=== PATIENT | female | born 1945 | race Caucasian/White ===

== ENCOUNTER 2017-08-07 12:50 | Inpatient (IN) | payer MEDICARE ==
[~2017-08-07] VITALS: Ht 154.9 cm; Wt 63.6 kg
[2017-08-07] VITALS (11 sets, daily range): BP systolic 99–140; BP diastolic 45–63
[2017-08-07 13:25] LABS: BASOPHILS # (AUTO) 0.1 X10'3 (0-0.2); BASOPHILS % (AUTO) 0.8 % (0-1); EOSINOPHILS # (AUTO) 0.3 X10'3 (0-0.9); HEMATOCRIT 41.2 % (35.0-45.0); HEMOGLOBIN 14.4 g/dl (12.0-16.0); LYMPHOCYTES # (AUTO) 2.8 X10'3 (1.1-4.8); LYMPHOCYTES % (AUTO) 21.8 % (21-51); MEAN CORPUSCULAR HEMOGLOBIN 33.4 PG (27.0-31.0); MEAN CORPUSCULAR VOLUME 95.4 FL (78-98); MEAN PLATELET VOLUME 7.9 FL (7.4-10.4); MONOCYTES # (AUTO) 0.8 X10'3 (0-0.9); MONOCYTES % (AUTO) 5.9 % (2-12); NEUTROPHILS % (AUTO) 69.5 % (42-75); PLATELET COUNT 242 X10'3 (140-440); RED BLOOD COUNT 4.32 X10'6 (4.20-5.60); RED CELL DISTRIBUTION WIDTH 12.7 % (11.5-14.5)
[2017-08-07] MEDS ORDERED: morphine 4 MG/ML inj SYRINge IV ONE ×4 (13:25→16:50)
[2017-08-07] MEDS ORDERED: ondansetron 4 MG/5 ML oral solution 5ml CUP PO ONE (13:25)
[2017-08-07] MEDS ORDERED: aspirin 81mg tab.chew PO ONE (13:25)
[2017-08-07 13:34] LABS: PARTIAL THROMBOPLASTIN TIME 25 SECONDS (22-32); PROTHROMBIN TIME 10.3 SECONDS (9.0-12.0)
[2017-08-07 13:39] LABS: ALANINE AMINOTRANSFERASE 20 U/L (12-78); ALBUMIN 3.8 G/DL (3.4-5.0); ALKALINE PHOSPHATASE 76 IU/L (46-116); ANION GAP 9 (8-16); ASPARTATE AMINO TRANSFERASE 16 U/L (10-37); BILIRUBIN,TOTAL 0.4 MG/DL (0.1-1.0); BLOOD UREA NITROGEN 18 MG/DL (7-18); BUN/CREATININE RATIO 26.5 (6.6-38.0); CALCIUM 9.2 MG/DL (8.5-10.1); CHLORIDE 106 MMOL/L (99-107); CREATININE 0.68 MG/DL (0.40-0.90); GLUCOSE 96 MG/DL (70-104); SODIUM 144 MMOL/L (135-145); TOTAL PROTEIN 7.5 G/DL (6.4-8.2); eGFR 85 ML/MIN
[2017-08-07 14:43] LABS: LACTATE DEHYDROGENASE 163 U/L (81-234); LIPASE 58 U/L (73-393)
[2017-08-07 16:12] LABS: CLARITY,URINE SLIGHTLY CLOUDY (Clear); COLOR,URINE YELLOW (Yellow); GLUCOSE, URINE NEGATIVE (Neg); KETONES,URINE TRACE mg/dl (Neg); LEUKOCYTE ESTERASE ,URINE MODERATE (Neg); NITRITES, URINE NEGATIVE (Neg); OCCULT BLOOD,URINE NEGATIVE (Neg); PROTEIN,URINE NEGATIVE (Neg)
[2017-08-07 16:17] LABS: UA COLLECTION TYPE CLN CATCH MIDSTREAM
[2017-08-07 16:27] LABS: BACTERIA,URINE 1+ /HPF (Neg); MUCUS STRANDS FEW /LPF (Neg); RBC,URINE NONE SEEN /HPF (0-2); SQUAMOUS EPITHELIAL CELL,UR MODERATE /LPF (FEW); TRANSITIONAL EPI CELLS,URINE FEW /HPF; WBC,URINE 0-4 /HPF (0-4)
[2017-08-07] MEDS ORDERED: LISI-600 PO (17:09)
[2017-08-07] MEDS ORDERED: ATOR10TA70 PO (17:09)
[2017-08-07] MEDS ORDERED: ASPI-611 PO (17:09)
[2017-08-07] MEDS ORDERED: levoFLOXACIN-Levaquin 750MG/D5 150 ML IV STA (17:23)
[2017-08-07] MEDS ORDERED: metroNIDAZOLE-Flagyl 500mg/NS 100 ML IV STA (17:23)
[2017-08-07] MEDS ORDERED: morphine 4 MG/ML inj SYRINge IV PRN ×4 (17:45→18:10)
[2017-08-07] MEDS ORDERED: magnesium Cl slow-release 64mg tablet PO PRN (17:45)
[2017-08-07] MEDS ORDERED: HYDROmorphone inj. 0.5 MG/0.5 ML DISP.SYRIN IV PRN ×2 (17:45)
[2017-08-07] MEDS ORDERED: metoclopramide 5 mg/ml inj IV PRN (17:45)
[2017-08-07] MEDS ORDERED: diphenhydrAMINE 50 mg/ml inj IV PRN (17:45)
[2017-08-07] MEDS ORDERED: magnesium 4gm in 100ml NS 100 ML IV PRN (17:45)
[2017-08-07] MEDS ORDERED: magnesium hydroxide 30ml (MOM) UD suspension PO PRN (17:45)
[2017-08-07] MEDS ORDERED: acetaminophen 650mg rectal suppository RC PRN (17:45)
[2017-08-07] MEDS ORDERED: potassium Cl 20 mEq SR tablet PO PRN (17:45)
[2017-08-07] MEDS ORDERED: acetaminophen 325mg tablet PO PRN ×2 (17:45)
[2017-08-07] MEDS ORDERED: potassium Cl 40MEQ/NS 500ml 500 ML IV PRN ×2 (17:45)
[2017-08-07] MEDS ORDERED: magnesium 2GM in 50ml NS 50 ML IV PRN (17:45)
[2017-08-07] MEDS ORDERED: ondansetron/PF 4mg/2ml inj IV PRN ×2 (17:45→18:10)
[2017-08-07] MEDS ORDERED: mag hydrox/Alum hydrox/simeth 30ml oral suspension PO PRN (17:45)
[2017-08-07] MEDS ORDERED: ringers solution, lacted 1,000 ML IV SCH (18:07)
[2017-08-07] MEDS ORDERED: meperidine/PF 50mg/ml syringe IV PRN ×3 (18:10)
[2017-08-07] MEDS ORDERED: proCHLORperazine 10 MG/2 ml inj IV PRN (18:10)
[2017-08-07] MEDS ORDERED: LIDOcaine 1% 30ml preserv. free vial ONE (18:14)
[2017-08-07] MEDS ORDERED: BUPIVAcaine/PF 2.5 mg/ml (0.25%) 30ml vial ONE (18:14)
[2017-08-07] MEDS: pantoprazole 40 MG vial IV SCH (18:26)
[2017-08-07] MEDS: normal saline 1000ml 1,000 ML IV SCH ×2 (18:26→22:57)
[2017-08-07] MEDS ORDERED: fentaNYL/PF 50MCG/1 ML 2ML syringe ONE (18:27)
[2017-08-07] MEDS ORDERED: midazolam 2 mg/2 ml injection ONE (18:27)
[2017-08-07] MEDS ORDERED: LIDOcaine 2% (20mg/ml) 5ml vial ONE (18:28)
[2017-08-07] MEDS: K and/or MAG REPLACEMENT MC SCH (18:32)
[2017-08-07] MEDS ORDERED: ketorolac trometh. 30mg/ml inj. ONE (18:40)
[2017-08-07] MEDS ORDERED: sevoflurane 250ml liquid IH ONE (18:40)
[2017-08-07] MEDS ORDERED: dexamethasone sod phosphate 4mg/ml inj. ONE (19:10)
[2017-08-07] MEDS ORDERED: glycopyrrolate 0.2mg/ml inj ONE (20:00)
[2017-08-07] MEDS ORDERED: neostigmine methylsulfate 1 MG/ML 10ml vial ONE (20:00)
[2017-08-07] MEDS ORDERED: temazepam 15mg capsule PO PRN (21:00)
[2017-08-07] MEDS: metroNIDAZOLE-Flagyl 500mg/NS 100 ML IV SCH (23:32)
[2017-08-08] VITALS: BP_SYST 120; BP_SYST 99; BP_DIAS 47; BP_DIAS 76
[2017-08-08 01:00] VITALS: BP 115/63
[2017-08-08] MEDS: HYDROcodone/acetaminophen 5mg/325mg tablet PO PRN (04:46)
[2017-08-08 04:54] VITALS: BP 122/48
[2017-08-08 05:08] LABS: BASOPHILS % (AUTO) 0.1 % (0-1); EOSINOPHILS # (AUTO) 0.1 X10'3 (0-0.9); EOSINOPHILS % (AUTO) 1.4 % (0-6); HEMATOCRIT 36.9 % (35.0-45.0); HEMOGLOBIN 12.8 g/dl (12.0-16.0); LYMPHOCYTES # (AUTO) 0.8 X10'3 (1.1-4.8); MEAN CORPUSCULAR HGB CONC 34.7 % (33.0-36.5); MEAN CORPUSCULAR VOLUME 94.9 FL (78-98); MEAN PLATELET VOLUME 8.5 FL (7.4-10.4); MONOCYTES # (AUTO) 0.3 X10'3 (0-0.9); MONOCYTES % (AUTO) 3.3 % (2-12); NEUTROPHILS # (AUTO) 7.4 X10'3 (1.8-7.7); NEUTROPHILS % (AUTO) 86.2 % (42-75); PLATELET COUNT 186 X10'3 (140-440); RED BLOOD COUNT 3.89 X10'6 (4.20-5.60); RED CELL DISTRIBUTION WIDTH 12.9 % (11.5-14.5); WHITE BLOOD COUNT 8.6 X10'3 (4.5-11.0)
[2017-08-08 05:25] LABS: ALANINE AMINOTRANSFERASE 23 U/L (12-78); ALBUMIN 2.8 G/DL (3.4-5.0); ALBUMIN/GLOBULIN RATIO 0.8 (1.1-1.5); ALKALINE PHOSPHATASE 63 IU/L (46-116); ANION GAP 9 (8-16); ASPARTATE AMINO TRANSFERASE 23 U/L (10-37); BILIRUBIN,TOTAL 0.4 MG/DL (0.1-1.0); BLOOD UREA NITROGEN 14 MG/DL (7-18); BUN/CREATININE RATIO 20.3 (6.6-38.0); CALCIUM 8.2 MG/DL (8.5-10.1); CHLORIDE 109 MMOL/L (99-107); CREATININE 0.69 MG/DL (0.40-0.90); GLUCOSE 149 MG/DL (70-104); MAGNESIUM 1.8 MG/DL (1.5-2.4); PHOSPHORUS 3.5 MG/DL (2.3-4.5); POTASSIUM 4.4 MMOL/L (3.5-5.1); SODIUM 143 MMOL/L (135-145); TOTAL CARBON DIOXIDE 24.9 MMOL/L (24-32); TOTAL PROTEIN 6.2 G/DL (6.4-8.2); eGFR 83 ML/MIN
[2017-08-08 07:30] VITALS: BP 117/49
[2017-08-08] MEDS: metroNIDAZOLE-Flagyl 500mg/NS 100 ML IV SCH ×3 (07:52→23:55)
[2017-08-08] MEDS: K and/or MAG REPLACEMENT MC SCH (08:00)
[2017-08-08] MEDS ORDERED: non-formulary drug (Aspirin (Aspir 81) 1 TAB) PO SCH (08:00)
[2017-08-08] MEDS: pantoprazole 40 MG vial IV SCH (08:41)
[2017-08-08] MEDS: lisinopril 20mg tablet PO SCH (08:41)
[2017-08-08] MEDS: atorvastatin 10mg tablet PO SCH (08:41)
[2017-08-08] MEDS: aspirin 81mg tablet.DR PO SCH (08:41)
[2017-08-08] MEDS: enoxaparin 40mg/0.4ml syringe SUBCUT SCH (08:42)
[2017-08-08] MEDS: levoFLOXACIN-Levaquin 750MG/D5 150 ML IV SCH (09:15)
[2017-08-08] MEDS: HYDROcodone/acetaminophen 10/325mg tab PO PRN ×2 (09:34→21:06)
[2017-08-08 11:00] VITALS: BP 124/65
[2017-08-08] MEDS: normal saline 1000ml 1,000 ML IV SCH ×2 (12:03→23:56)
[2017-08-08 20:00] VITALS: BP 150/60
[2017-08-09] VITALS: BP 117/64
[2017-08-09 05:10] LABS: BASOPHILS % (AUTO) 0.3 % (0-1); EOSINOPHILS # (AUTO) 0.1 X10'3 (0-0.9); EOSINOPHILS % (AUTO) 1.7 % (0-6); HEMATOCRIT 32.6 % (35.0-45.0); HEMOGLOBIN 11.3 g/dl (12.0-16.0); LYMPHOCYTES # (AUTO) 2.1 X10'3 (1.1-4.8); LYMPHOCYTES % (AUTO) 27.9 % (21-51); MEAN CORPUSCULAR HEMOGLOBIN 33.1 PG (27.0-31.0); MEAN CORPUSCULAR HGB CONC 34.6 % (33.0-36.5); MEAN CORPUSCULAR VOLUME 95.7 FL (78-98); MEAN PLATELET VOLUME 8.5 FL (7.4-10.4); MONOCYTES # (AUTO) 0.7 X10'3 (0-0.9); MONOCYTES % (AUTO) 8.9 % (2-12); NEUTROPHILS # (AUTO) 4.5 X10'3 (1.8-7.7); NEUTROPHILS % (AUTO) 61.2 % (42-75); PLATELET COUNT 162 X10'3 (140-440); RED CELL DISTRIBUTION WIDTH 12.8 % (11.5-14.5); WHITE BLOOD COUNT 7.4 X10'3 (4.5-11.0)
[2017-08-09 05:47] LABS: ANION GAP 9 (8-16); BLOOD UREA NITROGEN 15 MG/DL (7-18); BUN/CREATININE RATIO 21.4 (6.6-38.0); CALCIUM 8.2 MG/DL (8.5-10.1); CHLORIDE 111 MMOL/L (99-107); GLUCOSE 78 MG/DL (70-104); POTASSIUM 3.3 MMOL/L (3.5-5.1); SODIUM 144 MMOL/L (135-145); TOTAL CARBON DIOXIDE 24.5 MMOL/L (24-32); eGFR 82 ML/MIN
[2017-08-09 05:48] LABS: ALANINE AMINOTRANSFERASE 25 U/L (12-78); ALBUMIN 2.6 G/DL (3.4-5.0); ALBUMIN/GLOBULIN RATIO 0.9 (1.1-1.5); ALKALINE PHOSPHATASE 50 IU/L (46-116); ASPARTATE AMINO TRANSFERASE 21 U/L (10-37); BILIRUBIN,TOTAL 0.3 MG/DL (0.1-1.0); MAGNESIUM 1.8 MG/DL (1.5-2.4); PHOSPHORUS 2.8 MG/DL (2.3-4.5); TOTAL PROTEIN 5.5 G/DL (6.4-8.2)
[2017-08-09 07:30] VITALS: BP 124/53
[2017-08-09] MEDS: pantoprazole 40 MG vial IV SCH (07:34)
[2017-08-09] MEDS: enoxaparin 40mg/0.4ml syringe SUBCUT SCH (07:36)
[2017-08-09] MEDS: atorvastatin 10mg tablet PO SCH (07:36)
[2017-08-09] MEDS: levoFLOXACIN-Levaquin 750MG/D5 150 ML IV SCH (07:36)
[2017-08-09] MEDS: aspirin 81mg tablet.DR PO SCH (07:36)
[2017-08-09] MEDS: lisinopril 20mg tablet PO SCH (07:36)
[2017-08-09] MEDS: K and/or MAG REPLACEMENT MC SCH (08:00)
[2017-08-09] MEDS: normal saline 1000ml 1,000 ML IV SCH (09:44)
[2017-08-09] MEDS: potassium Cl 20 mEq SR tablet PO PRN ×3 (09:52→18:00)
[2017-08-09] MEDS: HYDROcodone/acetaminophen 5mg/325mg tablet PO PRN ×2 (09:57→15:55)
[2017-08-09] MEDS: metroNIDAZOLE-Flagyl 500mg/NS 100 ML IV SCH ×2 (10:13→15:54)
[2017-08-09 11:00] VITALS: BP 133/68
== END 2017-08-09 18:11 | disposition home or self-care (01) | DRG 418 ==
LOC: ER 12:51 → ED HOLD 17:44 → SUR 3N 20:55
PROVIDERS: ADMIT Family Medicine; ATTEND Internal Medicine
PROC: 0FT44ZZ Resection of Gallbladder, Percutaneous Endoscopic Approach (ICD-10-PCS; principal; 2017-08-07 18:40)
DX: K80.00 Calculus of gallbladder with acute cholecystitis without obstruction (principal); R65.10 Systemic inflammatory response syndrome (SIRS) of non-infectious origin without acute organ dysfunction; E11.9 Type 2 diabetes mellitus without complications; N28.1 Cyst of kidney, acquired; E78.00 Pure hypercholesterolemia, unspecified; E78.5 Hyperlipidemia, unspecified; I10 Essential (primary) hypertension; I71.4 Abdominal aortic aneurysm, without rupture; F17.200 Nicotine dependence, unspecified, uncomplicated; Z98.51 Tubal ligation status; Z88.0 Allergy status to penicillin; Z88.5 Allergy status to narcotic agent; Z79.899 Other long term (current) drug therapy; Z79.01 Long term (current) use of anticoagulants; Z79.82 Long term (current) use of aspirin; Z80.1 Family history of malignant neoplasm of trachea, bronchus and lung; Z71.6 Tobacco abuse counseling
CPT/HCPCS: 36415; 71045; 74176; 76700; 80053; 81001; 83605; 83615; 83690; 83735; 83880; 84100; 84484; 85025; 85610; 85730; 87040; 87070; 87088; 93005; 96374; 96375; 99285; A6251; A6449; A7000; C9113; J1100; J1650; J1885; J1956; J2001; J2250; J2270; J2405; J2710; J3010; J3490; J7030; J7120

== ENCOUNTER 2018-08-30 19:36 | Inpatient (IN) | payer MEDICARE ==
[~2018-08-30] VITALS: Ht 157.5 cm; Wt 60.0 kg
[~2018-08-30 19:36] MED LIST: ASPI-611 PO; ATOR10TA70 PO; LISI-600 PO
[2018-08-30] MEDS ORDERED: fentaNYL/PF 50MCG/1 ML 2ML syringe IV ONE ×2 (20:20→23:05)
[2018-08-30] MEDS ORDERED: morphine 4 MG/ML inj SYRINge IV ONE (22:10)
[2018-08-30 22:39] LABS: BASOPHILS % (AUTO) 0.3 % (0-1); EOSINOPHILS # (AUTO) 0.2 X10'3 (0-0.9); EOSINOPHILS % (AUTO) 1.5 % (0-6); HEMATOCRIT 42.1 % (35.0-45.0); LYMPHOCYTES # (AUTO) 1.8 X10'3 (1.1-4.8); LYMPHOCYTES % (AUTO) 14.5 % (21-51); MEAN CORPUSCULAR HEMOGLOBIN 32.8 PG (27.0-31.0); MEAN CORPUSCULAR HGB CONC 33.3 g/dL (33.0-36.5); MEAN CORPUSCULAR VOLUME 98.5 FL (78-98); MONOCYTES # (AUTO) 0.7 X10'3 (0-0.9); MONOCYTES % (AUTO) 5.9 % (2-12); NEUTROPHILS # (AUTO) 9.5 X10'3 (1.8-7.7); NEUTROPHILS % (AUTO) 77.8 % (42-75); PLATELET COUNT 219 X10'3 (140-440); RED BLOOD COUNT 4.28 X10'6 (4.20-5.60); RED CELL DISTRIBUTION WIDTH 12.7 % (11.5-14.5); WHITE BLOOD COUNT 12.2 X10'3 (4.5-11.0)
[2018-08-30 22:41] LABS: ALANINE AMINOTRANSFERASE 24 U/L (12-78); ALBUMIN 3.4 G/DL (3.4-5.0); ALKALINE PHOSPHATASE 81 IU/L (46-116); ANION GAP 8 (8-16); BILIRUBIN,TOTAL 0.2 MG/DL (0.1-1.0); BLOOD UREA NITROGEN 22 MG/DL (7-18); BUN/CREATININE RATIO 27.5 (6.6-38.0); CHLORIDE 108 MMOL/L (99-107); GLUCOSE 125 MG/DL (70-104); SODIUM 143 MMOL/L (135-145); TOTAL CARBON DIOXIDE 26.6 MMOL/L (24-32); TOTAL PROTEIN 6.8 G/DL (6.4-8.2); eGFR 70 ML/MIN
[2018-08-30 22:42] LABS: ASPARTATE AMINO TRANSFERASE 14 U/L (10-37); PARTIAL THROMBOPLASTIN TIME 25 SECONDS (22-32); POTASSIUM 4.3 MMOL/L (3.5-5.1)
[2018-08-30 23:26] LABS: CLARITY,URINE CLEAR (Clear); COLOR,URINE YELLOW (Yellow); GLUCOSE, URINE NEGATIVE (Neg); KETONES,URINE NEGATIVE (Neg); LEUKOCYTE ESTERASE ,URINE NEGATIVE (Neg); NITRITES, URINE NEGATIVE (Neg); OCCULT BLOOD,URINE MODERATE (Neg); PH,URINE 5.5 (4.8-8.0); PROTEIN,URINE NEGATIVE (Neg); UA COLLECTION TYPE FOLEY CATH
[2018-08-30 23:31] LABS: BACTERIA,URINE FEW /HPF (Neg); SQUAMOUS EPITHELIAL CELL,UR FEW /LPF (FEW); WBC,URINE NONE SEEN /HPF (0-4)
[2018-08-31] VITALS (18 sets, daily range): BP systolic 96–136; BP diastolic 34–83
[2018-08-31] MEDS ORDERED: acetaminophen 325mg tablet PO PRN (00:05)
[2018-08-31] MEDS ORDERED: HYDROcodone/acetaminophen 5mg/325mg tablet PO PRN (00:05)
[2018-08-31] MEDS ORDERED: mag hydrox/Alum hydrox/simeth 30ml oral suspension PO PRN (00:05)
[2018-08-31] MEDS ORDERED: morphine 2 MG/ML inj. syringe IV PRN ×2 (00:05)
[2018-08-31] MEDS ORDERED: magnesium hydroxide 30ml (MOM) UD suspension PO PRN (00:05)
[2018-08-31] MEDS ORDERED: CADD PCA waste documentation MC PRN (00:30)
[2018-08-31] MEDS ORDERED: naloxone 0.4 mg/ml inj IV PRN (00:30)
[2018-08-31] MEDS ORDERED: HYDROmorphone inj. 0.5 MG/0.5 ML DISP.SYRIN IV ONE (00:35)
[2018-08-31] MEDS: ondansetron/PF 4mg/2ml inj IV PRN (01:41)
[2018-08-31] MEDS: normal saline 1000ml 1,000 ML IV SCH ×3 (01:56→23:38)
--- NOTE | 2018-08-31 02:00 | NUR ---
PATIENT ARRIVED ON UNIT VIA GURNEY. SLIDE BOARD USED. PT VERY PAINFUL. ZOFRAN GIVEN FOR NAUSEA. PT WAS FEELING SICK. CADD SET UP. PATIENT EDUCATED ON USE. DAUGHTER AT BEDSIDE. VITALS STABLE. NO TELE. NO BELONGINGS. NPO FOR POSSIBLE SURGERY IN THE AM.
[2018-08-31] MEDS: HYDROmorphone/NS 1 mg/ml CADD 50 ML IV SCH ×12 (02:06→23:00)
--- NOTE | 2018-08-31 06:28 | NUR ---
PATIENT REPORT GIVEN TO ANH JULIAN.
--- NOTE | 2018-08-31 06:30 | NUR ---
Patient in room ORTHO 4010. I have received report from Diana Johansen RN and had the opportunity to ask questions and assume patient care.
[2018-08-31] MEDS: lisinopril 20mg tablet PO SCH (08:00)
[2018-08-31] MEDS: aspirin 81mg tab.chew PO SCH (08:00)
[2018-08-31] MEDS: atorvastatin 10mg tablet PO SCH (08:52)
[2018-08-31] MEDS ORDERED: ringers solution, lacted 1,000 ML IV SCH (14:31)
[2018-08-31] MEDS ORDERED: labetalol 20mg/4ml (5mg/ml) syringe IV PRN (14:35)
[2018-08-31] MEDS ORDERED: ondansetron/PF 4mg/2ml inj IV PRN (14:35)
[2018-08-31] MEDS ORDERED: hydrALAZINE 20mg/ml inj. IV PRN (14:35)
[2018-08-31] MEDS ORDERED: morphine 4 MG/ML inj SYRINge IV PRN ×2 (14:35)
[2018-08-31] MEDS ORDERED: fentaNYL/PF 50MCG/1 ML 2ML syringe IV PRN ×2 (14:35)
[2018-08-31] MEDS ORDERED: ketamine 10mg/ml 20ml inj ONE (14:48)
[2018-08-31] MEDS ORDERED: fentaNYL/PF 50MCG/1 ML 2ML syringe ONE (14:51)
[2018-08-31] MEDS ORDERED: midazolam 2 mg/2 ml injection ONE (14:52)
[2018-08-31] MEDS ORDERED: phenylephrine 10mg/ml inj. ONE (15:04)
[2018-08-31] MEDS ORDERED: ceFAZolin 1000mg inj ONE ×2 (15:30)
--- NOTE | 2018-08-31 16:00 | NUR ---
Received from OR via BED , accompanied by Anesthesiologist DR NAQVI and report given by Anesthesiolgist. PATIENT WAKING UP, DENIES PAIN, V/S WNL, NEUROVASCULAR CHECKS INTACT, 20G PIV RUE , DRESSING TO LEFT HIP CDI W/ COLD POWDER PACK AND W/ SCD ON. F/C DRAINING CLEAR YELLOW URINE.
--- NOTE | 2018-08-31 17:00 | NUR ---
PATIENT WAKING UP, DENIES PAIN, V/S WNL, NEUROVASCULAR CHECKS INTACT, 20G PIV RUE , DRESSING TO LEFT HIP CDI W/ COLD POWDER PACK AND W/ SCD ON. F/C DRAINING CLEAR YELLOW URINE. PATIENT TAKEN TO ORTHO WITH ALL BELONGINGS AND HOOKED UP TO MONITORS IN ROOM AND REPORT GIVEN TO SOFTWARE TOOLS DEVELOPER WHO HAS TAKEN OVER PATIENT CARE.
--- NOTE | 2018-08-31 18:00 | NUR ---
Problems reprioritized. Patient report given, questions answered & plan of care reviewed with Diana Zarate Rn.
[2018-08-31] MEDS: cefazolin/dext.iso 2gm/100ml 100 ML IV SCH ×2 (18:41→23:36)
[2018-09-01] MEDS: HYDROmorphone/NS 1 mg/ml CADD 50 ML IV SCH ×4 (01:00→07:00)
[2018-09-01 02:00] VITALS: BP 122/40
--- NOTE | 2018-09-01 03:30 | NUR ---
CAD level increased to 0.3 mg PRN Q10min.
[2018-09-01 06:00] VITALS: BP 122/53
--- NOTE | 2018-09-01 06:00 | NUR ---
Patient in room ORTHO 4010. I have received report from Diana Zarate RN and had the opportunity to ask questions and assume patient care.
--- NOTE | 2018-09-01 06:25 | NUR ---
Problems reprioritized. Patient report given to Jennifer RN, questions answered & plan of care reviewed with .
[2018-09-01 06:38] LABS: BASOPHILS # (AUTO) 0.1 X10'3 (0-0.2); BASOPHILS % (AUTO) 0.7 % (0-1); EOSINOPHILS # (AUTO) 0.1 X10'3 (0-0.9); EOSINOPHILS % (AUTO) 1.5 % (0-6); HEMATOCRIT 34.7 % (35.0-45.0); HEMOGLOBIN 11.8 g/dl (12.0-16.0); LYMPHOCYTES # (AUTO) 1.9 X10'3 (1.1-4.8); LYMPHOCYTES % (AUTO) 26.3 % (21-51); MEAN CORPUSCULAR HEMOGLOBIN 33.5 PG (27.0-31.0); MEAN CORPUSCULAR HGB CONC 34.1 g/dL (33.0-36.5); MEAN CORPUSCULAR VOLUME 98.3 FL (78-98); MEAN PLATELET VOLUME 8.3 FL (7.4-10.4); MONOCYTES # (AUTO) 0.7 X10'3 (0-0.9); MONOCYTES % (AUTO) 9.3 % (2-12); NEUTROPHILS # (AUTO) 4.6 X10'3 (1.8-7.7); NEUTROPHILS % (AUTO) 62.2 % (42-75); PLATELET COUNT 153 X10'3 (140-440); RED BLOOD COUNT 3.53 X10'6 (4.20-5.60); WHITE BLOOD COUNT 7.4 X10'3 (4.5-11.0)
[2018-09-01 06:54] LABS: ALANINE AMINOTRANSFERASE 23 U/L (12-78); ALBUMIN 2.5 G/DL (3.4-5.0); ALBUMIN/GLOBULIN RATIO 0.9 (1.1-1.5); ALKALINE PHOSPHATASE 62 IU/L (46-116); ANION GAP 6 (8-16); ASPARTATE AMINO TRANSFERASE 18 U/L (10-37); BILIRUBIN,TOTAL 0.4 MG/DL (0.1-1.0); BLOOD UREA NITROGEN 10 MG/DL (7-18); BUN/CREATININE RATIO 18.5 (6.6-38.0); CALCIUM 8.2 MG/DL (8.5-10.1); CHLORIDE 106 MMOL/L (99-107); CREATININE 0.54 MG/DL (0.40-0.90); GLUCOSE 77 MG/DL (70-104); POTASSIUM 3.6 MMOL/L (3.5-5.1); SODIUM 139 MMOL/L (135-145); TOTAL CARBON DIOXIDE 27.3 MMOL/L (24-32); TOTAL PROTEIN 5.4 G/DL (6.4-8.2); eGFR > 90 ML/MIN
[2018-09-01] MEDS: ondansetron/PF 4mg/2ml inj IV PRN (06:55)
[2018-09-01] MEDS: aspirin 81mg tab.chew PO SCH (08:00)
[2018-09-01] MEDS: lisinopril 20mg tablet PO SCH (08:20)
[2018-09-01] MEDS: atorvastatin 10mg tablet PO SCH (08:20)
[2018-09-01] MEDS: normal saline 1000ml 1,000 ML IV SCH ×2 (09:33→17:28)
[2018-09-01] MEDS ORDERED: HYDROcodone/acetaminophen 5mg/325mg tablet PO PRN (09:40)
[2018-09-01] MEDS ORDERED: HYDROmorphone inj. 0.5 MG/0.5 ML DISP.SYRIN IV PRN (09:40)
[2018-09-01 10:00] VITALS: BP 116/47
[2018-09-01] MEDS: aspirin 325mg tablet PO SCH (12:56)
[2018-09-01 14:00] VITALS: BP 99/45
[2018-09-01] MEDS: HYDROcodone/acetaminophen 10/325mg tab PO PRN ×2 (16:29→22:19)
[2018-09-01] MEDS: LIDOcaine 5% patch TP SCH (17:25)
[2018-09-01 18:00] VITALS: BP 117/42
--- NOTE | 2018-09-01 18:14 | NUR ---
Problems reprioritized. Patient report given, questions answered & plan of care reviewed with Zully JULIAN.
--- NOTE | 2018-09-01 18:16 | NUR ---
REPORT REC'D FROM IESHA KAMARA.
[2018-09-01 22:00] VITALS: BP 110/44
--- NOTE | 2018-09-01 22:20 | NUR ---
pt refusing SCD's , states they "make her feet cramp."
[2018-09-02] MEDS: HYDROcodone/acetaminophen 10/325mg tab PO PRN ×5 (03:30→21:34)
[2018-09-02] MEDS: normal saline 1000ml 1,000 ML IV SCH ×3 (03:33→22:03)
[2018-09-02 06:00] VITALS: BP 97/35
--- NOTE | 2018-09-02 06:11 | NUR ---
received report from grabiel butler
--- NOTE | 2018-09-02 06:30 | NUR ---
REPORT GIVEN TO IESHA HUGGINS.
[2018-09-02 07:39] LABS: BASOPHILS % (AUTO) 0.4 % (0-1); EOSINOPHILS # (AUTO) 0.2 X10'3 (0-0.9); EOSINOPHILS % (AUTO) 2.8 % (0-6); HEMATOCRIT 33.2 % (35.0-45.0); HEMOGLOBIN 11.5 g/dl (12.0-16.0); LYMPHOCYTES # (AUTO) 1.4 X10'3 (1.1-4.8); LYMPHOCYTES % (AUTO) 19.9 % (21-51); MEAN CORPUSCULAR HEMOGLOBIN 33.8 PG (27.0-31.0); MEAN CORPUSCULAR HGB CONC 34.7 g/dL (33.0-36.5); MEAN CORPUSCULAR VOLUME 97.6 FL (78-98); MEAN PLATELET VOLUME 7.9 FL (7.4-10.4); MONOCYTES # (AUTO) 0.6 X10'3 (0-0.9); MONOCYTES % (AUTO) 8.2 % (2-12); NEUTROPHILS # (AUTO) 4.7 X10'3 (1.8-7.7); NEUTROPHILS % (AUTO) 68.7 % (42-75); PLATELET COUNT 150 X10'3 (140-440); RED BLOOD COUNT 3.41 X10'6 (4.20-5.60); RED CELL DISTRIBUTION WIDTH 12.8 % (11.5-14.5); WHITE BLOOD COUNT 6.9 X10'3 (4.5-11.0)
[2018-09-02 07:56] LABS: ALANINE AMINOTRANSFERASE 19 U/L (12-78); ALBUMIN 2.5 G/DL (3.4-5.0); ALBUMIN/GLOBULIN RATIO 0.8 (1.1-1.5); ALKALINE PHOSPHATASE 60 IU/L (46-116); ANION GAP 7 (8-16); ASPARTATE AMINO TRANSFERASE 17 U/L (10-37); BILIRUBIN,TOTAL 0.4 MG/DL (0.1-1.0); BLOOD UREA NITROGEN 11 MG/DL (7-18); CALCIUM 8.4 MG/DL (8.5-10.1); CHLORIDE 107 MMOL/L (99-107); CREATININE 0.58 MG/DL (0.40-0.90); GLUCOSE 96 MG/DL (70-104); SODIUM 140 MMOL/L (135-145); TOTAL CARBON DIOXIDE 25.9 MMOL/L (24-32); TOTAL PROTEIN 5.7 G/DL (6.4-8.2); eGFR > 90 ML/MIN
[2018-09-02] MEDS: lisinopril 20mg tablet PO SCH (08:00)
[2018-09-02] MEDS: aspirin 325mg tablet PO SCH (08:21)
[2018-09-02] MEDS: atorvastatin 10mg tablet PO SCH (08:21)
[2018-09-02 10:00] VITALS: BP 103/35
[2018-09-02] MEDS: LIDOcaine 5% patch TP SCH (17:07)
[2018-09-02 18:00] VITALS: BP 105/42
--- NOTE | 2018-09-02 18:26 | NUR ---
GAVE REPORT TO IESHA MCGEE
--- NOTE | 2018-09-02 18:43 | NUR ---
Patient in room ORTHO 4010. I have received report from Stephania and had the opportunity to ask questions and assume patient care.
[2018-09-02 22:00] VITALS: BP 118/45
[2018-09-03] MEDS: HYDROcodone/acetaminophen 10/325mg tab PO PRN ×5 (02:54→21:23)
[2018-09-03 06:00] VITALS: BP 114/47
[2018-09-03 06:14] LABS: BASOPHILS % (AUTO) 0.5 % (0-1); EOSINOPHILS # (AUTO) 0.2 X10'3 (0-0.9); HEMATOCRIT 32.6 % (35.0-45.0); HEMOGLOBIN 11.2 g/dl (12.0-16.0); LYMPHOCYTES # (AUTO) 1.3 X10'3 (1.1-4.8); LYMPHOCYTES % (AUTO) 20.2 % (21-51); MEAN CORPUSCULAR HEMOGLOBIN 33.5 PG (27.0-31.0); MEAN CORPUSCULAR HGB CONC 34.3 g/dL (33.0-36.5); MEAN CORPUSCULAR VOLUME 97.4 FL (78-98); MEAN PLATELET VOLUME 8.5 FL (7.4-10.4); MONOCYTES # (AUTO) 0.5 X10'3 (0-0.9); MONOCYTES % (AUTO) 8.5 % (2-12); NEUTROPHILS # (AUTO) 4.2 X10'3 (1.8-7.7); NEUTROPHILS % (AUTO) 66.8 % (42-75); PLATELET COUNT 167 X10'3 (140-440); RED BLOOD COUNT 3.35 X10'6 (4.20-5.60); RED CELL DISTRIBUTION WIDTH 12.7 % (11.5-14.5); WHITE BLOOD COUNT 6.2 X10'3 (4.5-11.0)
--- NOTE | 2018-09-03 06:16 | NUR ---
REPORT GIVEN TO IESHA FLORIAN.
--- NOTE | 2018-09-03 06:31 | NUR ---
Problems reprioritized. Patient report given, questions answered & plan of care reviewed with Claudine.
[2018-09-03 06:33] LABS: ALANINE AMINOTRANSFERASE 16 U/L (12-78); ALBUMIN 2.6 G/DL (3.4-5.0); ALBUMIN/GLOBULIN RATIO 0.8 (1.1-1.5); ALKALINE PHOSPHATASE 57 IU/L (46-116); ANION GAP 7 (8-16); ASPARTATE AMINO TRANSFERASE 16 U/L (10-37); BILIRUBIN,TOTAL 0.3 MG/DL (0.1-1.0); BLOOD UREA NITROGEN 12 MG/DL (7-18); CALCIUM 8.5 MG/DL (8.5-10.1); CHLORIDE 107 MMOL/L (99-107); GLUCOSE 91 MG/DL (70-104); POTASSIUM 3.6 MMOL/L (3.5-5.1); SODIUM 140 MMOL/L (135-145); TOTAL CARBON DIOXIDE 25.6 MMOL/L (24-32); TOTAL PROTEIN 5.7 G/DL (6.4-8.2); eGFR > 90 ML/MIN
[2018-09-03] MEDS: lisinopril 20mg tablet PO SCH (08:00)
[2018-09-03] MEDS: normal saline 1000ml 1,000 ML IV SCH ×2 (08:03→17:33)
[2018-09-03] MEDS: atorvastatin 10mg tablet PO SCH (09:19)
[2018-09-03] MEDS: aspirin 325mg tablet PO SCH (09:19)
[2018-09-03 10:00] VITALS: BP 127/32
[2018-09-03] MEDS: LIDOcaine 5% patch TP SCH (17:00)
--- NOTE | 2018-09-03 17:30 | NUR ---
Spoke with pt at bedside to discuss bowel care. LBM recorded was on 08/30, before pt was admitted at [facility]. Discussed opioid use over the past 4 days, and informed we need her to have a bowel movement before she transfers to [facility] tomorrow. Pt stated "I had my son bring in curly cheese fries at lunch because that always makes me go to the bathroom, but it didn't work today." Offered pt bowel care, MOM, stool softener, prune juice. Pt refused all bowel care. Further discussed bowel care with the patient, and importance of having bowel care and could call MD to get an order for a medication that has worked for her in the past. Per pt, "I am not going to take anything because they all give me diarrhea." Will follow up on bowel care in the am with MD and patient.
[2018-09-03 18:00] VITALS: BP 126/44
--- NOTE | 2018-09-03 18:22 | NUR ---
Problems reprioritized. Patient report given, questions answered & plan of care reviewed with IESHA Andrea.
--- NOTE | 2018-09-03 19:30 | NUR ---
Pt refuses to wear SCD's and has been educated on the risks.
[2018-09-03 22:00] VITALS: BP 112/41
[2018-09-04] MEDS: normal saline 1000ml 1,000 ML IV SCH (04:03)
[2018-09-04] MEDS: HYDROcodone/acetaminophen 10/325mg tab PO PRN ×3 (04:15→12:50)
[2018-09-04 06:00] VITALS: BP 126/61
[2018-09-04 06:13] LABS: BASOPHILS % (AUTO) 0.5 % (0-1); EOSINOPHILS # (AUTO) 0.2 X10'3 (0-0.9); EOSINOPHILS % (AUTO) 4.8 % (0-6); HEMATOCRIT 33.8 % (35.0-45.0); HEMOGLOBIN 11.6 g/dl (12.0-16.0); LYMPHOCYTES # (AUTO) 1.4 X10'3 (1.1-4.8); LYMPHOCYTES % (AUTO) 26.3 % (21-51); MEAN CORPUSCULAR HEMOGLOBIN 33.7 PG (27.0-31.0); MEAN CORPUSCULAR HGB CONC 34.4 g/dL (33.0-36.5); MEAN CORPUSCULAR VOLUME 98.1 FL (78-98); MONOCYTES # (AUTO) 0.5 X10'3 (0-0.9); MONOCYTES % (AUTO) 8.7 % (2-12); NEUTROPHILS # (AUTO) 3.1 X10'3 (1.8-7.7); NEUTROPHILS % (AUTO) 59.7 % (42-75); PLATELET COUNT 197 X10'3 (140-440); RED BLOOD COUNT 3.45 X10'6 (4.20-5.60); RED CELL DISTRIBUTION WIDTH 12.6 % (11.5-14.5); WHITE BLOOD COUNT 5.2 X10'3 (4.5-11.0)
--- NOTE | 2018-09-04 06:23 | NUR ---
REPORT GIVEN TO IESHA FLORIAN.
[2018-09-04 06:41] LABS: ALANINE AMINOTRANSFERASE 16 U/L (12-78); ALBUMIN 2.8 G/DL (3.4-5.0); ALBUMIN/GLOBULIN RATIO 0.8 (1.1-1.5); ALKALINE PHOSPHATASE 61 IU/L (46-116); ANION GAP 8 (8-16); ASPARTATE AMINO TRANSFERASE 14 U/L (10-37); BILIRUBIN,TOTAL 0.3 MG/DL (0.1-1.0); BLOOD UREA NITROGEN 13 MG/DL (7-18); BUN/CREATININE RATIO 20.3 (6.6-38.0); CHLORIDE 106 MMOL/L (99-107); CREATININE 0.64 MG/DL (0.40-0.90); GLUCOSE 101 MG/DL (70-104); POTASSIUM 3.9 MMOL/L (3.5-5.1); SODIUM 143 MMOL/L (135-145); TOTAL PROTEIN 6.3 G/DL (6.4-8.2); eGFR 90 ML/MIN
[2018-09-04] MEDS: atorvastatin 10mg tablet PO SCH (08:45)
[2018-09-04 08:46] VITALS: BP_SYST 145
[2018-09-04] MEDS: aspirin 325mg tablet PO SCH (08:46)
[2018-09-04] MEDS: lisinopril 20mg tablet PO SCH (08:46)
--- NOTE | 2018-09-04 14:00 | NUR ---
Received discharge orders from Dr. Monk for pt to transfer to [facility] for short term rehab. Report called to Diana at [facility] at 1230. Jeny Cargo picked up pt at 1400 for transfer to [facility] at this time.
== END 2018-09-04 14:00 | DRG 481 ==
LOC: ER 19:37 → ORTHO 4S 08-31 01:24 → CMPBEDREQ 09-02 00:21
PROVIDERS: ADMIT Internal Medicine; ATTEND Internal Medicine
PROC: 0QH734Z Insertion of Internal Fixation Device into Left Upper Femur, Percutaneous Approach (ICD-10-PCS; principal; 2018-08-31 15:09)
DX: S72.002A Fracture of unspecified part of neck of left femur, initial encounter for closed fracture (principal); D62 Acute posthemorrhagic anemia; E78.00 Pure hypercholesterolemia, unspecified; E11.9 Type 2 diabetes mellitus without complications; E78.5 Hyperlipidemia, unspecified; G89.29 Other chronic pain; R03.0 Elevated blood-pressure reading, without diagnosis of hypertension; F17.200 Nicotine dependence, unspecified, uncomplicated; W18.31XA Fall on same level due to stepping on an object, initial encounter; K57.30 Diverticulosis of large intestine without perforation or abscess without bleeding; Z88.0 Allergy status to penicillin; Z88.5 Allergy status to narcotic agent; Z79.899 Other long term (current) drug therapy; Z79.82 Long term (current) use of aspirin; Y93.89 Activity, other specified; Y92.89 Other specified places as the place of occurrence of the external cause
CPT/HCPCS: 36415; 71045; 72192; 73502; 76000; 80053; 81001; 82948; 85025; 85610; 85730; 86885; 86900; 86901; 87070; 93005; 96374; 96375; 96376; 97110; 97116; 97161; 97530; 99285; A6222; A6454; A7000; C1713; G0378; J0690; J1170; J2250; J2270; J2370; J2405; J3010; J7030; J7120

== ENCOUNTER 2021-09-21 17:48 | Inpatient (IN) | payer MEDICARE ==
[~2021-09-21] VITALS: Ht 154.9 cm; Wt 59.0 kg
[~2021-09-21 17:48] MED LIST changes: -LISI-600 PO; +LISI20TA28 PO
[2021-09-21 19:06] LABS: BASOPHILS % (AUTO) 0.2 % (0-1); EOSINOPHILS # (AUTO) 0.1 X10'3 (0-0.9); EOSINOPHILS % (AUTO) 0.5 % (0-6); HEMOGLOBIN 12.2 g/dl (12.0-16.0); LYMPHOCYTES # (AUTO) 1.5 X10'3 (1.1-4.8); LYMPHOCYTES % (AUTO) 11.6 % (21-51); MEAN CORPUSCULAR HEMOGLOBIN 31.2 PG (27.0-31.0); MEAN CORPUSCULAR HGB CONC 32.9 g/dL (33.0-36.5); MEAN CORPUSCULAR VOLUME 94.9 FL (78-98); MONOCYTES # (AUTO) 1.3 X10'3 (0-0.9); NEUTROPHILS % (AUTO) 77.7 % (42-75); PLATELET COUNT 257 X10'3 (140-440); RED BLOOD COUNT 3.89 X10'6 (4.20-5.60); RED CELL DISTRIBUTION WIDTH 14.6 % (11.5-14.5); WHITE BLOOD COUNT 12.9 X10'3 (4.5-11.0)
[2021-09-21 19:21] LABS: ALANINE AMINOTRANSFERASE 18 U/L (12-78); ALBUMIN 3.4 G/DL (3.4-5.0); ALBUMIN/GLOBULIN RATIO 0.8 (1.1-1.5); ALKALINE PHOSPHATASE 74 IU/L (46-116); ANION GAP 9 (8-16); ASPARTATE AMINO TRANSFERASE 13 U/L (10-37); BILIRUBIN,TOTAL 0.4 MG/DL (0.1-1.0); BLOOD UREA NITROGEN 50 MG/DL (7-18); BUN/CREATININE RATIO 17.2 (6.6-38.0); CALCIUM 9.2 MG/DL (8.5-10.1); CHLORIDE 111 MMOL/L (99-107); CREATININE 2.91 MG/DL (0.40-0.90); GLUCOSE 112 MG/DL (70-104); POTASSIUM 5.3 MMOL/L (3.5-5.1); SODIUM 145 MMOL/L (135-145); TOTAL CARBON DIOXIDE 25.4 MMOL/L (24-32); TOTAL PROTEIN 7.5 G/DL (6.4-8.2); eGFR 16 ML/MIN
[2021-09-21] MEDS ORDERED: normal saline 1000ml 1,000 ML IV ONE (21:20)
[2021-09-21] MEDS ORDERED: ondansetron/PF 4mg/2ml inj IV ONE (21:55)
[2021-09-21] MEDS ORDERED: ringers solution, lacted 1,000 ML IV ONE (22:35)
[2021-09-21] MEDS ORDERED: oxyCODONE/APAP 5-325mg tablet PO ONE (22:35)
[2021-09-21 23:13] LABS: CLARITY,URINE CLEAR (Clear); COLOR,URINE YELLOW (Yellow); GLUCOSE, URINE NEGATIVE (Neg); KETONES,URINE NEGATIVE (Neg); LEUKOCYTE ESTERASE ,URINE MODERATE (Neg); NITRITES, URINE NEGATIVE (Neg); OCCULT BLOOD,URINE SMALL (Neg); PROTEIN,URINE NEGATIVE (Neg); UROBILINOGEN,URINE 0.2 E.U/dL (0.2-1.0)
[2021-09-21 23:16] LABS: UA COLLECTION TYPE NON-SPECIFIED
[2021-09-21 23:23] LABS: BACTERIA,URINE 1+ /HPF (Neg); SQUAMOUS EPITHELIAL CELL,UR FEW /LPF (FEW); WBC,URINE 20-30 /HPF (0-4)
[2021-09-21 23:24] LABS: MUCUS STRANDS FEW /LPF (Neg); WBC CLUMPS,URINE MODERATE /HPF (NEGATIVE)
[2021-09-22] MEDS ORDERED: CefTRIAXone 2gm/NS 100ml IVPB 100 ML IV ONE (00:15)
--- NOTE | 2021-09-22 00:30 | NUR ---
Dr. Patterson consulted as patient's blood pressure has been hypotensive. Given order to continue LR and start another bag at 0200 that was to go over 2 hours.
[2021-09-22] MEDS ORDERED: ringers solution, lacted 1,000 ML IV ONE ×2 (02:10→05:00)
[2021-09-22 04:21] LABS: ALANINE AMINOTRANSFERASE 14 U/L (12-78); ALBUMIN 2.7 G/DL (3.4-5.0); ALBUMIN/GLOBULIN RATIO 0.8 (1.1-1.5); ALKALINE PHOSPHATASE 60 IU/L (46-116); ANION GAP 5 (8-16); ASPARTATE AMINO TRANSFERASE 12 U/L (10-37); BILIRUBIN,TOTAL 0.2 MG/DL (0.1-1.0); BLOOD UREA NITROGEN 41 MG/DL (7-18); BUN/CREATININE RATIO 19.6 (6.6-38.0); CALCIUM 8.2 MG/DL (8.5-10.1); CHLORIDE 113 MMOL/L (99-107); CREATININE 2.09 MG/DL (0.40-0.90); GLUCOSE 83 MG/DL (70-104); SODIUM 143 MMOL/L (135-145); TOTAL CARBON DIOXIDE 24.8 MMOL/L (24-32); TOTAL PROTEIN 6.3 G/DL (6.4-8.2); eGFR 23 ML/MIN
--- NOTE | 2021-09-22 05:55 | NUR ---
Patient's oxygenation found to be 88%. Placed on 2L NC and oxygenation amauri to approximately 98%.
[2021-09-22] MEDS ORDERED: CEPH-585 PO ×2 (06:00)
[2021-09-22] MEDS ORDERED: ringers solution, lactated 1000ml IV soln IV ONE (06:05)
[2021-09-22] MEDS ORDERED: cephalexin 250mg capsule PO ONE (06:05)
[2021-09-22] MEDS ORDERED: ondansetron/PF 4mg/2ml inj IV PRN (08:40)
[2021-09-22] MEDS ORDERED: mag hydrox/Alum hydrox/simeth 30ml oral suspension PO PRN (08:40)
[2021-09-22] MEDS ORDERED: POTASSIUM BICARB 20meq eff tab 20 MEQ TABLET.EFF PO PRN ×2 (08:40)
[2021-09-22] MEDS ORDERED: magnesium 4gm in 100ml NS 100 ML IV PRN (08:40)
[2021-09-22] MEDS ORDERED: magnesium 2GM in 50ml NS 50 ML IV PRN (08:40)
[2021-09-22] MEDS ORDERED: magnesium Cl slow-release 64mg tablet PO PRN (08:40)
[2021-09-22] MEDS ORDERED: magnesium hydroxide 30ml (MOM) UD suspension PO PRN (08:40)
[2021-09-22] MEDS ORDERED: acetaminophen 325mg tablet PO PRN ×2 (08:40)
[2021-09-22] MEDS ORDERED: potassium CL 10mEq/100ml bag 100 ML IV PRN (08:40)
--- NOTE | 2021-09-22 08:45 | NUR ---
dr ocampo at bedside.
[2021-09-22] MEDS: normal saline 1000ml 1,000 ML IV SCH ×3 (09:23→23:27)
[2021-09-22] MEDS ORDERED: ibuprofen tablet 400 MG TABLET PO ONE (09:55)
[2021-09-22] MEDS ORDERED: BACL10TA2 PO (12:22)
[2021-09-22] MEDS ORDERED: GABA300C PO (12:22)
[2021-09-22] MEDS ORDERED: LISI40TA13 PO (12:22)
[2021-09-22] MEDS ORDERED: IBUP-24 PO (12:22)
[2021-09-22] MEDS ORDERED: PER5325T PO (12:22)
[2021-09-22] MEDS ORDERED: LISI20TA28 PO (16:18)
[2021-09-22] MEDS: K and/or MAG REPLACEMENT MC SCH (20:00)
[2021-09-22] MEDS: docusate sod 100mg capsule PO SCH (20:00)
[2021-09-22] MEDS: heparin, porcine 5000 units/ml vial SQ SCH (20:30)
[2021-09-22] MEDS ORDERED: temazepam 15mg capsule PO PRN (21:00)
[2021-09-22 22:15] VITALS: BP 151/62
--- NOTE | 2021-09-22 22:15 | NUR ---
PATIENT ADMITTED TO ROOM 4017 FROM ER FOR ACUTE RENAL FAILURE AND UTI. PLACED COMFORTABLE IN BED. VITAL SIGNS TAKEN AND RECORDED.
[2021-09-22] MEDS: oxyCODONE/APAP 5-325mg tablet PO PRN (23:01)
[2021-09-23] VITALS: BP 161/72
[2021-09-23 04:00] VITALS: BP 164/70
[2021-09-23 06:00] VITALS: BP 141/62
--- NOTE | 2021-09-23 06:48 | NUR ---
Patient in room ORTHO 4017. I have received report from Aleja Masterson RN and had the opportunity to ask questions and assume patient care.
[2021-09-23 07:04] LABS: BASOPHILS % (AUTO) 0.4 % (0-1); EOSINOPHILS # (AUTO) 0.2 X10'3 (0-0.9); EOSINOPHILS % (AUTO) 3.1 % (0-6); HEMATOCRIT 34.8 % (35.0-45.0); HEMOGLOBIN 11.2 g/dl (12.0-16.0); LYMPHOCYTES # (AUTO) 1.4 X10'3 (1.1-4.8); LYMPHOCYTES % (AUTO) 21.1 % (21-51); MEAN CORPUSCULAR HEMOGLOBIN 30.6 PG (27.0-31.0); MEAN CORPUSCULAR HGB CONC 32.1 g/dL (33.0-36.5); MEAN CORPUSCULAR VOLUME 95.2 FL (78-98); MEAN PLATELET VOLUME 8.6 FL (7.4-10.4); MONOCYTES # (AUTO) 0.7 X10'3 (0-0.9); MONOCYTES % (AUTO) 9.6 % (2-12); NEUTROPHILS # (AUTO) 4.5 X10'3 (1.8-7.7); NEUTROPHILS % (AUTO) 65.8 % (42-75); PLATELET COUNT 212 X10'3 (140-440); RED BLOOD COUNT 3.66 X10'6 (4.20-5.60); RED CELL DISTRIBUTION WIDTH 14.2 % (11.5-14.5); WHITE BLOOD COUNT 6.8 X10'3 (4.5-11.0)
[2021-09-23 07:14] LABS: ALANINE AMINOTRANSFERASE 17 U/L (12-78); ALBUMIN 2.8 G/DL (3.4-5.0); ALBUMIN/GLOBULIN RATIO 0.8 (1.1-1.5); ALKALINE PHOSPHATASE 61 IU/L (46-116); ANION GAP 9 (8-16); ASPARTATE AMINO TRANSFERASE 14 U/L (10-37); BILIRUBIN,TOTAL 0.3 MG/DL (0.1-1.0); BLOOD UREA NITROGEN 26 MG/DL (7-18); BUN/CREATININE RATIO 21.8 (6.6-38.0); CALCIUM 8.3 MG/DL (8.5-10.1); CHLORIDE 113 MMOL/L (99-107); CHOL/HDL RATIO 2.6 (0.00-4.99); CHOLESTEROL 105 MG/DL (0-200); CREATININE 1.19 MG/DL (0.40-0.90); GLUCOSE 71 MG/DL (70-104); HDL CHOLESTEROL 40 MG/DL (35-60); LDL CHOLESTEROL 43 MG/DL (50-100); POTASSIUM 4.6 MMOL/L (3.5-5.1); SODIUM 143 MMOL/L (135-145); TOTAL CARBON DIOXIDE 21.4 MMOL/L (24-32); TOTAL PROTEIN 6.5 G/DL (6.4-8.2); TRIGLYCERIDES 117 MG/DL (20-135); eGFR 44 ML/MIN
[2021-09-23] MEDS: heparin, porcine 5000 units/ml vial SQ SCH (08:00)
[2021-09-23] MEDS: K and/or MAG REPLACEMENT MC SCH (08:00)
[2021-09-23] MEDS: docusate sod 100mg capsule PO SCH (08:00)
[2021-09-23] MEDS: CefTRIAXone 2gm/NS 100ml IVPB 100 ML IV SCH ×2 (08:00→08:37)
[2021-09-23] MEDS: oxyCODONE/APAP 5-325mg tablet PO PRN (08:37)
[2021-09-23] MEDS ORDERED: oxyCODONE/APAP 5-325mg tablet PO PRN (09:00)
[2021-09-23 10:00] VITALS: BP 133/49
[2021-09-23] MEDS ORDERED: levoFLOXACIN 500mg tablet PO SCH (11:00)
[2021-09-23 14:00] VITALS: BP 170/53
--- NOTE | 2021-09-23 14:42 | NUR ---
Message: Denver Severino# [id number]-Pt is extremely agitated, screaming. Wants more pain meds. currently on diluted .3 continuous & 0.2 demand. can we get him 1 dose of Ativan/Toradol?? thank you. Danyell 1977
[2021-09-23] MEDS ORDERED: CIPR-259 PO (15:36)
[2021-09-23] MEDS ORDERED: gabapentin 300mg capsule PO SCH (16:00)
--- NOTE | 2021-09-23 16:30 | NUR ---
PT DC by [facility] resource, family picked her up.
[2021-09-23] MEDS ORDERED: baclofen 10mg tablet PO SCH (21:00)
[2021-09-24] MEDS ORDERED: lisinopril 20mg tablet PO SCH (08:00)
[2021-09-24] MEDS ORDERED: atorvastatin 10mg tablet PO SCH (08:00)
== END 2021-09-23 16:20 | disposition home or self-care (01) | DRG 640 ==
LOC: ER 17:48 → ED HOLD 09-22 08:37 → ORTHO 4S 09-22 22:03
PROVIDERS: ADMIT Internal Medicine; ATTEND Internal Medicine
DX: E86.0 Dehydration (principal); N17.0 Acute kidney failure with tubular necrosis; N39.0 Urinary tract infection, site not specified; H81.13 Benign paroxysmal vertigo, bilateral; I10 Essential (primary) hypertension; F17.210 Nicotine dependence, cigarettes, uncomplicated; M54.9 Dorsalgia, unspecified; E11.9 Type 2 diabetes mellitus without complications; E78.00 Pure hypercholesterolemia, unspecified; G89.4 Chronic pain syndrome; Z88.5 Allergy status to narcotic agent; Z88.0 Allergy status to penicillin; Z71.6 Tobacco abuse counseling
CPT/HCPCS: 36415; 70450; 70544; 70551; 71045; 80053; 80061; 81001; 83605; 83880; 84484; 85025; 87040; 87081; 87088; 93880; 97161; 97530; 99285; G0378; J0696; J1644; J2405; J7030; J7120

== ENCOUNTER 2022-04-19 07:21 | Emergency (ER) | payer MEDICARE ==
[~2022-04-19] VITALS: Ht 154.9 cm; Wt 60.0 kg
[~2022-04-19 07:21] MED LIST changes: -ASPI-611 PO; +BACL10TA2 PO; +GABA300C PO; +PER5325T PO
[2022-04-19 07:33] VITALS: BP 125/55
[2022-04-19] MEDS ORDERED: fentaNYL/PF 50MCG/1 ML 2ML syringe IV ONE (08:00)
[2022-04-19] MEDS ORDERED: HYDROcodone/acetaminophen 5mg/325mg tablet PO ONE (09:25)
[2022-04-19] MEDS ORDERED: acetaminophen 325mg tablet PO ONE (09:29)
== END 2022-04-19 10:19 | disposition home or self-care (01) ==
LOC: ER 07:21
DX: Z04.3 Encounter for examination and observation following other accident (principal); E78.00 Pure hypercholesterolemia, unspecified; I10 Essential (primary) hypertension; E11.9 Type 2 diabetes mellitus without complications; Z88.0 Allergy status to penicillin; Z88.5 Allergy status to narcotic agent; W19.XXXA Unspecified fall, initial encounter; Y93.89 Activity, other specified; Y92.89 Other specified places as the place of occurrence of the external cause; Y99.8 Other external cause status
CPT/HCPCS: 64450; 70450; 72125; 72170; 96374; 99284; J3010

== ENCOUNTER 2023-03-06 11:32 | Emergency (ER) | payer MEDICARE ==
[~2023-03-06] VITALS: Ht 154.9 cm; Wt 57.7 kg
[~2023-03-06 11:32] MED LIST changes: +CEPH250T PO; +HYDR-3965 PO; +HYDR4TAB55 PO; -LISI20TA28 PO; +METO-395 PO; -PER5325T PO
[2023-03-06 11:37] VITALS: TEMP 100.5
[2023-03-06] MEDS ORDERED: HYDROcodone/acetaminophen 10/325mg tab PO STA (11:58)
[2023-03-06] MEDS ORDERED: fentaNYL/PF 50MCG/1 ML 2ML syringe IV ONE (13:10)
[2023-03-06 14:26] VITALS: BP 111/57; PULSE 84; O2SAT 98
[2023-03-06] MEDS ORDERED: morphine 2 MG/ML inj. syringe IV STA (14:36)
[2023-03-06 15:01] VITALS: RESP 16
== END 2023-03-06 15:03 | disposition home or self-care (01) ==
LOC: ER 11:32
DX: S73.101A Unspecified sprain of right hip, initial encounter (principal); X58.XXXA Exposure to other specified factors, initial encounter; Y93.89 Activity, other specified; Y92.89 Other specified places as the place of occurrence of the external cause; Y99.8 Other external cause status
CPT/HCPCS: 73502; 96374; 99284; J3010

== ENCOUNTER 2023-03-09 08:16 | Inpatient (IN) | payer MEDICARE ==
[2023-03-09] VITALS (18 sets, daily range): BP systolic 80–186; BP diastolic 39–70; PULSE 65–111; RESP 14–27; TEMP 97.8–99.4; O2SAT 88–97
[~2023-03-09] VITALS: Ht 154.9 cm; Wt 57.7 kg
[~2023-03-09 08:16] MED LIST changes: -CEPH250T PO; -HYDR-3965 PO
[2023-03-09] MEDS ORDERED: ciprofloxacin lact 400MG/200ML 200 ML IV STA (09:37)
[2023-03-09] MEDS ORDERED: CLINDAMYCIN 600mg IN NS 50ML 50 ML IV STA (09:37)
[2023-03-09] MEDS ORDERED: ondansetron/PF 4mg/2ml inj IV ONE (09:40)
[2023-03-09] MEDS ORDERED: HYDROmorphone 1 mg/ml syringe IV ONE (09:40)
--- NOTE | 2023-03-09 10:18 | NUR ---
Patient sitting on edge of bed.
[2023-03-09] MEDS ORDERED: diphenhydrAMINE 25mg capsule PO PRN (11:25)
[2023-03-09] MEDS ORDERED: ondansetron 4mg rapidly disintigrating tab PO PRN (11:25)
[2023-03-09] MEDS ORDERED: HYDROcodone/acetaminophen 5mg/325mg tablet PO PRN (11:25)
[2023-03-09] MEDS ORDERED: acetaminophen 325mg tablet PO PRN (11:25)
[2023-03-09] MEDS ORDERED: HYDROcodone/acetaminophen 10/325mg tab PO PRN (11:25)
[2023-03-09] MEDS ORDERED: morphine 2 MG/ML inj. syringe IV PRN ×3 (11:25→14:55)
[2023-03-09] MEDS ORDERED: mag hydrox/Alum hydrox/simeth 30ml oral suspension PO PRN (11:25)
[2023-03-09] MEDS ORDERED: metoclopramide 5 mg/ml inj IV PRN (11:25)
[2023-03-09] MEDS ORDERED: potassium Cl 20 mEq SR tablet PO PRN ×2 (11:25)
[2023-03-09] MEDS ORDERED: magnesium Cl slow-release 64mg tablet PO PRN (11:25)
[2023-03-09] MEDS ORDERED: ondansetron/PF 4mg/2ml inj IV PRN ×2 (11:25→14:55)
[2023-03-09] MEDS ORDERED: bisacodyl 10mg suppository rectal RC PRN (11:25)
[2023-03-09] MEDS ORDERED: piperacillin/tazo 4.5gm/100ml 100 ML IV SCH (11:30)
[2023-03-09 12:01] LABS: BASOPHILS % (AUTO) 0.3 % (0-1); EOSINOPHILS # (AUTO) 0.2 X10'3 (0-0.9); EOSINOPHILS % (AUTO) 1.4 % (0-6); HEMOGLOBIN 9.9 g/dl (12.0-16.0); LYMPHOCYTES # (AUTO) 1.5 X10'3 (1.1-4.8); LYMPHOCYTES % (AUTO) 13.5 % (21-51); MEAN CORPUSCULAR HEMOGLOBIN 25.1 PG (27.0-31.0); MEAN CORPUSCULAR HGB CONC 31.1 g/dL (33.0-36.5); MEAN CORPUSCULAR VOLUME 80.8 FL (78-98); MEAN PLATELET VOLUME 7.8 FL (7.4-10.4); MONOCYTES # (AUTO) 0.9 X10'3 (0-0.9); MONOCYTES % (AUTO) 7.5 % (2-12); NEUTROPHILS # (AUTO) 8.7 X10'3 (1.8-7.7); NEUTROPHILS % (AUTO) 77.3 % (42-75); PLATELET COUNT 386 X10'3 (140-440); RED BLOOD COUNT 3.95 X10'6 (4.20-5.60); RED CELL DISTRIBUTION WIDTH 19.4 % (11.5-14.5); WHITE BLOOD COUNT 11.3 X10'3 (4.5-11.0)
[2023-03-09] MEDS: normal saline 1000ml 1,000 ML IV SCH ×2 (12:01→21:25)
[2023-03-09 12:08] LABS: ALBUMIN 2.3 G/DL (3.4-5.0); ALBUMIN/GLOBULIN RATIO 0.5 (1.1-1.5); ALKALINE PHOSPHATASE 77 IU/L (46-116); ANION GAP 10 (8-16); ASPARTATE AMINO TRANSFERASE 16 U/L (10-37); BILIRUBIN,TOTAL 0.3 MG/DL (0.1-1.0); BLOOD UREA NITROGEN 15 MG/DL (7-18); BUN/CREATININE RATIO 19.7 (10.0-20.0); CALCIUM 8.8 MG/DL (8.5-10.1); CHLORIDE 99 MMOL/L (99-107); CREATININE 0.76 MG/DL (0.40-0.90); GLUCOSE 92 MG/DL (70-104); MAGNESIUM 2.2 MG/DL (1.5-2.4); POTASSIUM 3.2 MMOL/L (3.5-5.1); SODIUM 136 MMOL/L (135-145); TOTAL CARBON DIOXIDE 27.4 MMOL/L (24-32); TOTAL PROTEIN 7.2 G/DL (6.4-8.2); eCRCL 45 ML/MIN; eGFR 73 ML/MIN
[2023-03-09 12:09] LABS: ALANINE AMINOTRANSFERASE 6 U/L (12-78)
[2023-03-09 12:14] LABS: APTT 25 SECONDS (22-32); INR 1.1 INR; PROTHROMBIN TIME 11.4 SECONDS (9.0-12.0)
[2023-03-09 12:24] LABS: ANISOCYTOSIS 2+; HYPOCHROMASIA 1+; MICROCYTOSIS 1+; PLATELET ESTIMATE NORMAL
[2023-03-09] MEDS ORDERED: fentaNYL/PF 50MCG/1 ML 2ML syringe ONE (13:29)
[2023-03-09] MEDS ORDERED: midazolam 1 mg/ML 2ml injection ONE (13:30)
[2023-03-09] MEDS ORDERED: propofol inj 20 ML IV ONE (14:28)
[2023-03-09] MEDS ORDERED: meperidine/PF 25mg/ml syringe IV PRN ×3 (14:55)
[2023-03-09] MEDS ORDERED: proCHLORperazine 10 MG/2 ml inj IV PRN (14:55)
[2023-03-09] MEDS ORDERED: ringers solution, lacted 1,000 ML IV SCH (14:55)
[2023-03-09] MEDS ORDERED: morphine 4 MG/ML inj SYRINge IV PRN (14:55)
[2023-03-09] MEDS: CefTRIAXone/D5W-Rocephin 1gm 50 ML IV SCH (15:06)
[2023-03-09] MEDS ORDERED: dextrose 50%-water 50ml dispensing syringe IV ONE (15:15)
--- NOTE | 2023-03-09 15:54 | NUR ---
PATIENT HAS MET ALL CRITERIA FOR TRANSFER TO THE ORTHO FLOOR. VSS. DRESSINGS INTACT. BED LOW, CALL LIGHT PRESENT AND 2 RAILS UP. RN PRESENT TO ACCEPT CARE OF PATIENT AND REPORT HAS BEEN CALLED. ALL QUESTIONS ANSWERED TO ACCEPTING RN. Addendum: 03/09/23 at 1631 by Megha Navarro RN Amended: Links added.
--- NOTE | 2023-03-09 16:20 | NUR ---
Received pt from PACU. Pt is very drowsy and is refusing O2. Sats are ranging from 84%-91%. Pt attempted to refuse tele monitor but we were able to convince her to leave it on. Denies pain, just c/o being cold.
[2023-03-09] MEDS: dextrose 5%-1/2 normal saline 1,000 ML IV SCH (16:33)
[2023-03-09] MEDS: vancomycin/NS 1 GM ADD-VANTAGE 250 ML IV SCH (16:45)
--- NOTE | 2023-03-09 16:51 | NUR ---
Pt in severe pain. Refusing to cooperate for post op vitals. Message sent to Dr. Isabel.
[2023-03-09] MEDS ORDERED: morphine 2 MG/ML inj. syringe IV ONE (17:10)
[2023-03-09] MEDS: HYDROmorph/NS 0.2 mg/ml PCA 100 ML IV SCH ×4 (19:00→23:00)
[2023-03-09] MEDS: PCA WASTE DOCUMENTATION 1 MG ML MC SCH (19:16)
[2023-03-10] VITALS (7 sets, daily range): BP systolic 112–177; BP diastolic 53–76; PULSE 73–113; RESP 14–25; TEMP 96.8–100.4; O2SAT 89–100
[2023-03-10] MEDS: HYDROmorph/NS 0.2 mg/ml PCA 100 ML IV SCH ×12 (01:00→23:00)
[2023-03-10] MEDS: dextrose 5%-1/2 normal saline 1,000 ML IV SCH (02:44)
--- NOTE | 2023-03-10 04:30 | NUR ---
research laboratory technician called, pts HR in 120s. In to assess pt and she was trying to get OOB. Pt repositioned with assistance and gown put back on, she was easily reoriented but frustrated at nursing staff.
[2023-03-10 08:42] LABS: BASOPHILS % (AUTO) 0.2 % (0-1); EOSINOPHILS % (AUTO) 0.1 % (0-6); HEMATOCRIT 32.3 % (35.0-45.0); HEMOGLOBIN 10.1 g/dl (12.0-16.0); LYMPHOCYTES # (AUTO) 1.2 X10'3 (1.1-4.8); LYMPHOCYTES % (AUTO) 7.7 % (21-51); MEAN CORPUSCULAR HEMOGLOBIN 25.2 PG (27.0-31.0); MEAN CORPUSCULAR HGB CONC 31.4 g/dL (33.0-36.5); MEAN CORPUSCULAR VOLUME 80.4 FL (78-98); MEAN PLATELET VOLUME 7.6 FL (7.4-10.4); MONOCYTES # (AUTO) 1.4 X10'3 (0-0.9); MONOCYTES % (AUTO) 8.6 % (2-12); NEUTROPHILS # (AUTO) 13.3 X10'3 (1.8-7.7); NEUTROPHILS % (AUTO) 83.4 % (42-75); PLATELET COUNT 370 X10'3 (140-440); RED BLOOD COUNT 4.01 X10'6 (4.20-5.60); RED CELL DISTRIBUTION WIDTH 19.2 % (11.5-14.5); WHITE BLOOD COUNT 15.9 X10'3 (4.5-11.0)
[2023-03-10] MEDS: CefTRIAXone/D5W-Rocephin 1gm 50 ML IV SCH (09:01)
[2023-03-10 09:21] LABS: ALANINE AMINOTRANSFERASE 10 U/L (12-78); ALBUMIN 2.1 G/DL (3.4-5.0); ALBUMIN/GLOBULIN RATIO 0.5 (1.1-1.5); ALKALINE PHOSPHATASE 79 IU/L (46-116); ANION GAP 8 (8-16); ASPARTATE AMINO TRANSFERASE 25 U/L (10-37); BILIRUBIN,TOTAL 0.4 MG/DL (0.1-1.0); BLOOD UREA NITROGEN 4 MG/DL (7-18); BUN/CREATININE RATIO 5.5 (10.0-20.0); CALCIUM 8.3 MG/DL (8.5-10.1); CHLORIDE 96 MMOL/L (99-107); CREATININE 0.73 MG/DL (0.40-0.90); GLUCOSE 181 MG/DL (70-104); MAGNESIUM 1.7 MG/DL (1.5-2.4); PHOSPHORUS 1.7 MG/DL (2.3-4.5); SODIUM 132 MMOL/L (135-145); TOTAL CARBON DIOXIDE 28.5 MMOL/L (24-32); TOTAL PROTEIN 6.7 G/DL (6.4-8.2); eCRCL 46 ML/MIN; eGFR 77 ML/MIN
[2023-03-10 09:24] LABS: POTASSIUM 2.5 MMOL/L (3.5-5.1)
[2023-03-10] MEDS ORDERED: magnesium 2GM in 50ml NS 50 ML IV PRN (09:35)
[2023-03-10] MEDS ORDERED: potassium Cl 20 mEq SR tablet PO PRN (09:35)
[2023-03-10] MEDS ORDERED: magnesium 4gm in 100ml NS 100 ML IV PRN (09:35)
[2023-03-10] MEDS ORDERED: magnesium Cl slow-release 64mg tablet PO PRN (09:35)
[2023-03-10] MEDS: normal saline 1000ml 1,000 ML IV SCH ×2 (10:21→20:37)
[2023-03-10] MEDS: potassium Cl 40MEQ/1/2NS 520ml 520 ML IV PRN ×2 (10:22→18:57)
--- NOTE | 2023-03-10 11:56 | NUR ---
Noted pt with a low Rickey of 10. 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 Per EMR pt POD #1 s/p emergent left AKA. Pt currently on a regular diet, documented with 0-25% PO intake of first meal following surgery, pending documentation of PO intake for today. LBM 11/2 per EMR. Will continue to follow closely and make recommendations as appropriate pending trends in PO intake. Recommendations: 1) Continue regular diet 2) Monitor need for ONS/additional protein 3) Routine bowel care 4) Weekly scaled weights Addendum: 03/10/23 at [address] Amended: Links added.
[2023-03-10] MEDS: NUT.TX.GLUC.INTOLER,LAC-FR,SOY (GLUCERNA) 237 ML PO SCH ×2 (13:00→18:00)
[2023-03-10] MEDS: vancomycin/NS 1 GM ADD-VANTAGE 250 ML IV SCH (13:55)
--- NOTE | 2023-03-10 14:19 | NUR ---
PRESSURE ULCER EDUCATION: DEFINITION: A pressure ulcer is an area of skin that breaks down when you stay in one position too long. The constant pressure against the skin reduces the blood flow to that area and the affected tissue dies. CAUSES: "Being bedridden or in a wheelchair "Fragile skin "Having a chronic condition, such as diabetes or vascular disease "Inability to move certain parts of your body without assistance "Older age "Incontinence of urine or stool SYMPTOMS: "A reddened area that DOES NOT turn white when pressed on - this can be the beginning of a pressure ulcer "A blister, deep sore or a crater - these can be advanced pressure ulcers FIRST AID: "Relieve the pressure on this area "Keep the area clean and dry "Call your primary doctor if you see any of the above symptoms "DO NOT massage the area "DO NOT use a donut shaped or ring shaped pillow- these actually interfere with the blood flow and cause complications PREVENTION: "Check for pressure ulcers everyday "Change position at least every two hours to relieve pressure "Use items that help relieve pressure- pillows, sheepskin, foam padding, and powders. "Keep skin clean and dry "Eat healthy well balanced meals "Exercise daily IF YOU SEE ANY OF THESE SYMPTOMS WHILE IN THE HOSPITAL - TELL YOUR NURSE IMMEDIATELY. IF YOU SEE ANY OF THESE SYMPTOMS WHILE AT HOME OR HAVE ANY QUESTIONS OR CONCERNS ABOUT PRESSURE ULCERS - CALL YOUR PRIMARY DOCTOR IMMEDIATELY. Addendum: 03/10/23 at 1419 by Apolonia Rob LVN Amended: Links added.
[2023-03-10] MEDS ORDERED: HYDROmorphone 2mg tablet PO PRN (16:20)
[2023-03-10] MEDS: nicotine 21mg patch - 24 hr TD SCH (17:30)
[2023-03-10] MEDS: PCA WASTE DOCUMENTATION 1 MG ML MC SCH (17:48)
[2023-03-10] MEDS: baclofen 10mg tablet PO SCH (19:06)
[2023-03-10] MEDS: K and/or MAG REPLACEMENT MC SCH (19:07)
[2023-03-10] MEDS: gabapentin 300mg capsule PO SCH (23:36)
[2023-03-11] VITALS (9 sets, daily range): BP systolic 96–145; BP diastolic 52–64; PULSE 84–105; RESP 14–20; TEMP 98.4–99.9; O2SAT 91–99
[2023-03-11] MEDS: HYDROmorph/NS 0.2 mg/ml PCA 100 ML IV SCH ×12 (01:00→23:00)
[2023-03-11 05:45] LABS: BASOPHILS # (AUTO) 0.1 X10'3 (0-0.2); BASOPHILS % (AUTO) 0.7 % (0-1); EOSINOPHILS # (AUTO) 0.1 X10'3 (0-0.9); EOSINOPHILS % (AUTO) 0.7 % (0-6); HEMATOCRIT 29.4 % (35.0-45.0); HEMOGLOBIN 9.2 g/dl (12.0-16.0); LYMPHOCYTES # (AUTO) 1.1 X10'3 (1.1-4.8); LYMPHOCYTES % (AUTO) 9.6 % (21-51); MEAN CORPUSCULAR HEMOGLOBIN 25.1 PG (27.0-31.0); MEAN CORPUSCULAR HGB CONC 31.4 g/dL (33.0-36.5); MEAN CORPUSCULAR VOLUME 80.1 FL (78-98); MEAN PLATELET VOLUME 7.4 FL (7.4-10.4); MONOCYTES % (AUTO) 8.7 % (2-12); NEUTROPHILS # (AUTO) 8.8 X10'3 (1.8-7.7); NEUTROPHILS % (AUTO) 80.3 % (42-75); PLATELET COUNT 298 X10'3 (140-440); RED BLOOD COUNT 3.67 X10'6 (4.20-5.60); RED CELL DISTRIBUTION WIDTH 18.7 % (11.5-14.5)
[2023-03-11 06:21] LABS: ALBUMIN 1.7 G/DL (3.4-5.0); ALBUMIN/GLOBULIN RATIO 0.4 (1.1-1.5); ALKALINE PHOSPHATASE 68 IU/L (46-116); ANION GAP 6 (8-16); ASPARTATE AMINO TRANSFERASE 31 U/L (10-37); BILIRUBIN,TOTAL 0.4 MG/DL (0.1-1.0); BLOOD UREA NITROGEN 4 MG/DL (7-18); BUN/CREATININE RATIO 7.3 (10.0-20.0); CALCIUM 8.4 MG/DL (8.5-10.1); CHLORIDE 103 MMOL/L (99-107); CREATININE 0.55 MG/DL (0.40-0.90); GLUCOSE 80 MG/DL (70-104); MAGNESIUM 1.8 MG/DL (1.5-2.4); PHOSPHORUS 2.2 MG/DL (2.3-4.5); POTASSIUM 3.3 MMOL/L (3.5-5.1); SODIUM 135 MMOL/L (135-145); TOTAL CARBON DIOXIDE 26.2 MMOL/L (24-32); TOTAL PROTEIN 5.8 G/DL (6.4-8.2); eCRCL 62 ML/MIN; eGFR > 90 ML/MIN
[2023-03-11 06:39] LABS: ANISOCYTOSIS 2+; MICROCYTOSIS 1+; PLATELET ESTIMATE NORMAL
[2023-03-11 06:41] LABS: ALANINE AMINOTRANSFERASE < 6 U/L (12-78)
[2023-03-11] MEDS: K and/or MAG REPLACEMENT MC SCH ×2 (06:52→20:00)
[2023-03-11] MEDS: NUT.TX.GLUC.INTOLER,LAC-FR,SOY (GLUCERNA) 237 ML PO SCH ×3 (08:52→18:01)
[2023-03-11] MEDS: gabapentin 300mg capsule PO SCH ×3 (08:53→23:28)
[2023-03-11] MEDS: metoprolol succinate 25mg (24-HOUR) SR. Tablet PO SCH (08:53)
[2023-03-11] MEDS: nicotine 21mg patch - 24 hr TD SCH (08:54)
[2023-03-11] MEDS: potassium Cl 20 mEq SR tablet PO PRN ×3 (08:54→18:53)
[2023-03-11] MEDS: CefTRIAXone/D5W-Rocephin 1gm 50 ML IV SCH (08:54)
[2023-03-11] MEDS: normal saline 1000ml 1,000 ML IV SCH ×2 (09:21→22:41)
[2023-03-11] MEDS ORDERED: traMADol 50MG tablet PO PRN (12:20)
[2023-03-11] MEDS: sodium ferric gluc complex inj 125 MG in normal saline 100ml IV soln 100 ML IV SCH (12:32)
[2023-03-11] MEDS: vancomycin/NS 1 GM ADD-VANTAGE 250 ML IV SCH (13:45)
[2023-03-11] MEDS ORDERED: ipratropium/albuterol 3ml nebule NEB PRN (14:25)
[2023-03-11] MEDS: ipratropium/albuterol 3ml nebule NEB SCH ×2 (16:17→20:15)
[2023-03-11] MEDS: PCA WASTE DOCUMENTATION 1 MG ML MC SCH (17:48)
--- NOTE | 2023-03-11 18:00 | NUR ---
SILVER BUFFER documentation: I have reviewed and agree with all interventions, assessments performed and documented by Josh JULIAN. Addendum: 03/11/23 at 1904 by Kalpana Philippe RN wrong documentation Problems reprioritized. Patient report given, questions answered & plan of care reviewed with josh JULIAN.
[2023-03-11] MEDS: baclofen 10mg tablet PO SCH (19:14)
[2023-03-12] VITALS (14 sets, daily range): BP systolic 82–139; BP diastolic 40–61; PULSE 54–97; RESP 16–20; TEMP 97.1–98.6; O2SAT 90–99
[2023-03-12] MEDS: HYDROmorph/NS 0.2 mg/ml PCA 100 ML IV SCH ×12 (01:00→23:00)
[2023-03-12] MEDS: ipratropium/albuterol 3ml nebule NEB SCH ×4 (02:51→20:44)
[2023-03-12 07:58] LABS: BASOPHILS % (AUTO) 0.3 % (0-1); EOSINOPHILS # (AUTO) 0.1 X10'3 (0-0.9); HEMATOCRIT 26.1 % (35.0-45.0); HEMOGLOBIN 8.3 g/dl (12.0-16.0); LYMPHOCYTES # (AUTO) 0.7 X10'3 (1.1-4.8); LYMPHOCYTES % (AUTO) 7.9 % (21-51); MEAN CORPUSCULAR HEMOGLOBIN 25.8 PG (27.0-31.0); MEAN CORPUSCULAR HGB CONC 31.7 g/dL (33.0-36.5); MEAN CORPUSCULAR VOLUME 81.4 FL (78-98); MEAN PLATELET VOLUME 7.8 FL (7.4-10.4); MONOCYTES # (AUTO) 0.9 X10'3 (0-0.9); MONOCYTES % (AUTO) 9.7 % (2-12); NEUTROPHILS # (AUTO) 7.6 X10'3 (1.8-7.7); NEUTROPHILS % (AUTO) 81.1 % (42-75); PLATELET COUNT 281 X10'3 (140-440); RED BLOOD COUNT 3.21 X10'6 (4.20-5.60); WHITE BLOOD COUNT 9.4 X10'3 (4.5-11.0)
[2023-03-12] MEDS: K and/or MAG REPLACEMENT MC SCH ×2 (08:00→20:00)
[2023-03-12] MEDS: NUT.TX.GLUC.INTOLER,LAC-FR,SOY (GLUCERNA) 237 ML PO SCH ×2 (08:00→12:30)
[2023-03-12 08:36] LABS: ALANINE AMINOTRANSFERASE < 6 U/L (12-78); ALBUMIN 1.5 G/DL (3.4-5.0); ALBUMIN/GLOBULIN RATIO 0.4 (1.1-1.5); ALKALINE PHOSPHATASE 69 IU/L (46-116); ANION GAP 7 (8-16); ASPARTATE AMINO TRANSFERASE 21 U/L (10-37); BILIRUBIN,TOTAL 0.3 MG/DL (0.1-1.0); BLOOD UREA NITROGEN 6 MG/DL (7-18); BUN/CREATININE RATIO 11.8 (10.0-20.0); CALCIUM 8.2 MG/DL (8.5-10.1); CHLORIDE 106 MMOL/L (99-107); CREATININE 0.51 MG/DL (0.40-0.90); GLUCOSE 71 MG/DL (70-104); MAGNESIUM 1.9 MG/DL (1.5-2.4); PHOSPHORUS 2.8 MG/DL (2.3-4.5); POTASSIUM 3.9 MMOL/L (3.5-5.1); SODIUM 138 MMOL/L (135-145); TOTAL CARBON DIOXIDE 24.7 MMOL/L (24-32); TOTAL PROTEIN 5.4 G/DL (6.4-8.2); eCRCL 66 ML/MIN; eGFR > 90 ML/MIN
[2023-03-12] MEDS: nicotine 21mg patch - 24 hr TD SCH (08:55)
[2023-03-12] MEDS: CefTRIAXone/D5W-Rocephin 1gm 50 ML IV SCH (09:05)
[2023-03-12] MEDS: atorvastatin 10mg tablet PO SCH (09:05)
[2023-03-12] MEDS: metoprolol succinate 25mg (24-HOUR) SR. Tablet PO SCH (09:06)
[2023-03-12] MEDS: gabapentin 300mg capsule PO SCH ×3 (09:06→23:23)
[2023-03-12 12:01] LABS: HYPOCHROMASIA 1+; PLATELET ESTIMATE NORMAL
[2023-03-12] MEDS: normal saline 1000ml 1,000 ML IV SCH ×2 (12:01→22:34)
[2023-03-12 12:02] LABS: POIKILOCYTOSIS FEW
[2023-03-12] MEDS ORDERED: VANCOMYCIN LEVEL IV ONE (12:30)
--- NOTE | 2023-03-12 14:25 | NUR ---
relieving RN for lunch, pt is sleeping, easily arouseable, IV site is patent and clear, antibiotic infusing
[2023-03-12] MEDS: VANCOMYCIN 1,500MG in NS 300ml IVPB IV SCH (14:28)
[2023-03-12] MEDS: PCA WASTE DOCUMENTATION 1 MG ML MC SCH (17:48)
--- NOTE | 2023-03-12 18:30 | NUR ---
With noc RN reassessed left stump, pulling stump sock down. Pressure area observed under rolled edge of sock. Tender to touch, pt winces at touch.
[2023-03-12] MEDS: sodium ferric gluc complex inj 125 MG in normal saline 100ml IV soln 100 ML IV SCH (20:05)
[2023-03-12] MEDS: baclofen 10mg tablet PO SCH (22:47)
[2023-03-13] VITALS (13 sets, daily range): BP systolic 97–117; BP diastolic 45–69; PULSE 74–93; RESP 14–20; TEMP 97.6–98.8; O2SAT 92–98
[2023-03-13] MEDS: HYDROmorph/NS 0.2 mg/ml PCA 100 ML IV SCH ×6 (01:00→13:00)
[2023-03-13] MEDS: ipratropium/albuterol 3ml nebule NEB SCH ×4 (03:13→20:57)
[2023-03-13 06:33] LABS: HEMATOCRIT 24.2 % (35.0-45.0); HEMOGLOBIN 7.6 g/dl (12.0-16.0); MEAN CORPUSCULAR HEMOGLOBIN 25.6 PG (27.0-31.0); MEAN CORPUSCULAR HGB CONC 31.5 g/dL (33.0-36.5); MEAN PLATELET VOLUME 7.4 FL (7.4-10.4); WHITE BLOOD COUNT 7.1 X10'3 (4.5-11.0)
[2023-03-13 06:36] LABS: ALBUMIN 1.4 G/DL (3.4-5.0); ANION GAP 5 (8-16); BASOPHILS % (AUTO) 0.5 % (0-1); BLOOD UREA NITROGEN 7 MG/DL (7-18); BUN/CREATININE RATIO 13.2 (10.0-20.0); CALCIUM 8.1 MG/DL (8.5-10.1); CHLORIDE 107 MMOL/L (99-107); CREATININE 0.53 MG/DL (0.40-0.90); EOSINOPHILS # (AUTO) 0.2 X10'3 (0-0.9); EOSINOPHILS % (AUTO) 2.9 % (0-6); GLUCOSE 78 MG/DL (70-104); LYMPHOCYTES # (AUTO) 0.8 X10'3 (1.1-4.8); LYMPHOCYTES % (AUTO) 11.3 % (21-51); MAGNESIUM 1.9 MG/DL (1.5-2.4); MEAN CORPUSCULAR VOLUME 81.5 FL (78-98); MONOCYTES # (AUTO) 0.8 X10'3 (0-0.9); MONOCYTES % (AUTO) 11.2 % (2-12); NEUTROPHILS # (AUTO) 5.3 X10'3 (1.8-7.7); NEUTROPHILS % (AUTO) 74.1 % (42-75); PHOSPHORUS 3.2 MG/DL (2.3-4.5); PLATELET COUNT 247 X10'3 (140-440); POTASSIUM 3.4 MMOL/L (3.5-5.1); RED BLOOD COUNT 2.96 X10'6 (4.20-5.60); RED CELL DISTRIBUTION WIDTH 19.2 % (11.5-14.5); SODIUM 139 MMOL/L (135-145); TOTAL CARBON DIOXIDE 26.9 MMOL/L (24-32); eCRCL 64 ML/MIN; eGFR > 90 ML/MIN
[2023-03-13] MEDS: nicotine 21mg patch - 24 hr TD SCH (08:00)
[2023-03-13] MEDS: K and/or MAG REPLACEMENT MC SCH ×2 (08:00→20:00)
[2023-03-13] MEDS: NUT.TX.GLUC.INTOLER,LAC-FR,SOY (GLUCERNA) 237 ML PO SCH ×3 (08:00→17:38)
[2023-03-13] MEDS: metoprolol succinate 25mg (24-HOUR) SR. Tablet PO SCH (09:30)
[2023-03-13] MEDS: gabapentin 300mg capsule PO SCH ×2 (09:30→15:22)
[2023-03-13] MEDS: atorvastatin 10mg tablet PO SCH (09:30)
[2023-03-13] MEDS: CefTRIAXone/D5W-Rocephin 1gm 50 ML IV SCH (09:30)
[2023-03-13] MEDS: PCA WASTE DOCUMENTATION 1 MG ML MC SCH (14:01)
[2023-03-13] MEDS ORDERED: HYDROcodone/acetaminophen 10/325mg tab PO PRN (14:05)
[2023-03-13] MEDS: normal saline 1000ml 1,000 ML IV SCH (14:19)
[2023-03-13] MEDS: VANCOMYCIN 1,500MG in NS 300ml IVPB IV SCH (14:21)
[2023-03-13] MEDS ORDERED: HYDROcodone/acetaminophen 5mg/325mg tablet PO PRN (14:55)
--- NOTE | 2023-03-13 15:06 | NUR ---
F/u 03/13: Pt PO remains poor 0-25% meals post-op not meeting nutrition needs. Glucerna TIDWM started 03/10 WS ~21% avg though refusing half of them in EMR. Pt seen by RD at bedside for verbal high protein diet ed. Pt reports lower appetite at this time, dislikes Glucernas, declines Ensure Enlive TIDWM, and is agreeable to ham sandwich entree WS tonight w/ strawberry smoothie TIDWM- dietary notified. RD encouraged pt to verbalize if changes mind on Ensure Enlives since best way to optimize kcal/protein intake/wound healing currently. LBM 03/08 per EMR without routine bowel regimen and pt does report nausea at times during RD visit. RD d/w RN regarding routine MVM w/ Fe, zinc, vitamin C for wound healing, cancelling Glucerna, and routine bowel regimen if MD agreeable given above. Since pt agreeable to smoothies recommend Zan BIDBD in them for wound healing- MD notified. Will monitor for further PO trends and nutrition intervention needs. Recommendations: 1) Continue regular diet; encourage PO 2) strawberry smoothie TIDWM; Zan BID pending physician verification in EMR 3) If pt changes mind on ONS- Ensure Enlive TIDWM to optimize nutrition status 4) Routine bowel care; 5 days constipation 5) Weekly scaled weights Addendum: 03/13/23 at [address] Amended: Links added. Addendum: 03/14/23 at [address] *CORRECTION* Recommendations: 1) Continue regular diet; encourage PO 2) strawberry smoothie TIDWM; Zan BID pending physician verification in EMR 3) If pt changes mind on ONS- Ensure Enlive TIDWM to optimize nutrition status 4) routine MVM w/ Fe, zinc, vitamin C for wound healing 5) Routine bowel care; 5 days constipation 6) Weekly scaled weights
[2023-03-13] MEDS ORDERED: potassium Cl 40MEQ/1/2NS 520ml 520 ML IV PRN (15:20)
[2023-03-13] MEDS ORDERED: potassium Cl 20 mEq SR tablet PO PRN (15:20)
[2023-03-13] MEDS: HYDROcodone/acetaminophen 10/325mg tab PO PRN ×2 (15:22→19:40)
[2023-03-13] MEDS: sodium ferric gluc complex inj 125 MG in normal saline 100ml IV soln 100 ML IV SCH (16:54)
[2023-03-13] MEDS: JUVEN Smoothie Arginine/Glut./Ca2+Bmb (Juven 19.3pkt) 240ml cup PO SCH (17:30)
--- NOTE | 2023-03-13 18:45 | NUR ---
Report to Nino JULAIN
--- NOTE | 2023-03-13 18:50 | NUR ---
Patient in room ORTHO 4010. I have received report from DIANA JULIAN and had the opportunity to ask questions and assume patient care.
[2023-03-13] MEDS: baclofen 10mg tablet PO SCH (19:39)
[2023-03-13] MEDS: ascorbic acid 500mg tablet PO SCH (19:39)
[2023-03-13] MEDS: multivitamins, therapeutics tablet PO SCH (19:39)
[2023-03-13] MEDS: magnesium hydroxide 30ml (MOM) UD suspension PO PRN (19:41)
[2023-03-13] MEDS: potassium Cl 20 mEq SR tablet PO PRN (22:22)
[2023-03-14] VITALS (13 sets, daily range): BP systolic 78–111; BP diastolic 51–60; PULSE 74–81; RESP 14–20; TEMP 97.7–98.3; O2SAT 89–98
[2023-03-14] MEDS: gabapentin 300mg capsule PO SCH ×3 (01:44→16:00)
[2023-03-14] MEDS: HYDROcodone/acetaminophen 10/325mg tab PO PRN ×4 (01:46→19:11)
[2023-03-14] MEDS: ipratropium/albuterol 3ml nebule NEB SCH ×4 (03:10→21:01)
[2023-03-14] MEDS: normal saline 1000ml 1,000 ML IV SCH ×2 (04:01→13:32)
--- NOTE | 2023-03-14 06:20 | NUR ---
Problems reprioritized. Patient report given, questions answered & plan of care reviewed with DIANA JULIAN.
[2023-03-14 06:46] LABS: BASOPHILS % (AUTO) 0.5 % (0-1); EOSINOPHILS # (AUTO) 0.2 X10'3 (0-0.9); EOSINOPHILS % (AUTO) 3.5 % (0-6); HEMATOCRIT 25.7 % (35.0-45.0); HEMOGLOBIN 7.9 g/dl (12.0-16.0); LYMPHOCYTES # (AUTO) 0.9 X10'3 (1.1-4.8); LYMPHOCYTES % (AUTO) 13.5 % (21-51); MEAN CORPUSCULAR HEMOGLOBIN 25.2 PG (27.0-31.0); MEAN CORPUSCULAR HGB CONC 30.6 g/dL (33.0-36.5); MEAN CORPUSCULAR VOLUME 82.2 FL (78-98); MEAN PLATELET VOLUME 7.5 FL (7.4-10.4); MONOCYTES # (AUTO) 0.7 X10'3 (0-0.9); MONOCYTES % (AUTO) 10.3 % (2-12); NEUTROPHILS # (AUTO) 4.9 X10'3 (1.8-7.7); NEUTROPHILS % (AUTO) 72.2 % (42-75); PLATELET COUNT 266 X10'3 (140-440); RED BLOOD COUNT 3.13 X10'6 (4.20-5.60); RED CELL DISTRIBUTION WIDTH 19.2 % (11.5-14.5); WHITE BLOOD COUNT 6.8 X10'3 (4.5-11.0)
[2023-03-14 07:02] LABS: ALBUMIN 1.4 G/DL (3.4-5.0); ANION GAP 8 (8-16); BLOOD UREA NITROGEN 6 MG/DL (7-18); BUN/CREATININE RATIO 12.5 (10.0-20.0); CALCIUM 8.6 MG/DL (8.5-10.1); CHLORIDE 108 MMOL/L (99-107); CREATININE 0.48 MG/DL (0.40-0.90); GLUCOSE 76 MG/DL (70-104); PHOSPHORUS 3.7 MG/DL (2.3-4.5); POTASSIUM 3.4 MMOL/L (3.5-5.1); SODIUM 141 MMOL/L (135-145); TOTAL CARBON DIOXIDE 25.5 MMOL/L (24-32); eCRCL 71 ML/MIN; eGFR > 90 ML/MIN
[2023-03-14] MEDS: JUVEN Smoothie Arginine/Glut./Ca2+Bmb (Juven 19.3pkt) 240ml cup PO SCH ×2 (07:30→17:30)
[2023-03-14] MEDS: K and/or MAG REPLACEMENT MC SCH ×2 (08:00→20:00)
[2023-03-14] MEDS: NUT.TX.GLUC.INTOLER,LAC-FR,SOY (GLUCERNA) 237 ML PO SCH ×3 (08:00→18:00)
[2023-03-14] MEDS: nicotine 21mg patch - 24 hr TD SCH (08:00)
[2023-03-14] MEDS: ascorbic acid 500mg tablet PO SCH ×2 (08:06→19:08)
[2023-03-14] MEDS: atorvastatin 10mg tablet PO SCH (08:07)
[2023-03-14] MEDS: metoprolol succinate 25mg (24-HOUR) SR. Tablet PO SCH (08:07)
[2023-03-14] MEDS: multivitamins, therapeutics tablet PO SCH (08:07)
[2023-03-14] MEDS ORDERED: normal saline 500ml IV soln 500 ML IV ONE (08:10)
[2023-03-14] MEDS: CefTRIAXone/D5W-Rocephin 1gm 50 ML IV SCH (08:15)
--- NOTE | 2023-03-14 14:16 | NUR ---
pt. refused 1500 svn. no SOB. Pt. wanted to sleep. SPO2 97% on 1 l/m
[2023-03-14] MEDS: HYDROmorphone 1 mg/ml syringe IV PRN ×2 (15:22→21:50)
[2023-03-14] MEDS: VANCOMYCIN 1,500MG in NS 300ml IVPB IV SCH (16:14)
[2023-03-14] MEDS ORDERED: albumin (human) 25% 100 ML IV solution IV ONE (16:50)
[2023-03-14] MEDS: PCA WASTE DOCUMENTATION 1 MG ML MC SCH (17:48)
--- NOTE | 2023-03-14 18:25 | NUR ---
Report to Calista JULIAN
[2023-03-14] MEDS: sodium ferric gluc complex inj 125 MG in normal saline 100ml IV soln 100 ML IV SCH (19:39)
[2023-03-14] MEDS: baclofen 10mg tablet PO SCH (21:38)
[2023-03-14] MEDS: nicotine 14mg patch - 24hr TD SCH (21:39)
[2023-03-14] MEDS: potassium Cl 20 mEq SR tablet PO PRN (21:43)
[2023-03-15] VITALS (13 sets, daily range): BP systolic 116–169; BP diastolic 57–64; PULSE 75–92; RESP 15–20; TEMP 98.1–98.6; O2SAT 94–98
[2023-03-15] MEDS: gabapentin 300mg capsule PO SCH ×4 (00:49→16:46)
[2023-03-15] MEDS: potassium Cl 20 mEq SR tablet PO PRN ×2 (02:18→07:34)
[2023-03-15] MEDS: HYDROcodone/acetaminophen 10/325mg tab PO PRN ×5 (02:30→21:04)
[2023-03-15] MEDS: HYDROmorphone 1 mg/ml syringe IV PRN ×2 (03:01→10:29)
[2023-03-15] MEDS: ipratropium/albuterol 3ml nebule NEB SCH ×4 (03:03→20:26)
--- NOTE | 2023-03-15 06:10 | NUR ---
received report from grabiel lucas
[2023-03-15 06:14] LABS: BASOPHILS % (AUTO) 0.5 % (0-1); EOSINOPHILS # (AUTO) 0.3 X10'3 (0-0.9); EOSINOPHILS % (AUTO) 3.7 % (0-6); HEMATOCRIT 23.9 % (35.0-45.0); HEMOGLOBIN 7.5 g/dl (12.0-16.0); LYMPHOCYTES # (AUTO) 0.9 X10'3 (1.1-4.8); LYMPHOCYTES % (AUTO) 12.6 % (21-51); MEAN CORPUSCULAR HEMOGLOBIN 25.4 PG (27.0-31.0); MEAN CORPUSCULAR HGB CONC 31.3 g/dL (33.0-36.5); MEAN CORPUSCULAR VOLUME 81.3 FL (78-98); MEAN PLATELET VOLUME 7.6 FL (7.4-10.4); MONOCYTES # (AUTO) 0.6 X10'3 (0-0.9); MONOCYTES % (AUTO) 9.4 % (2-12); NEUTROPHILS # (AUTO) 5.1 X10'3 (1.8-7.7); NEUTROPHILS % (AUTO) 73.8 % (42-75); PLATELET COUNT 278 X10'3 (140-440); RED BLOOD COUNT 2.94 X10'6 (4.20-5.60); RED CELL DISTRIBUTION WIDTH 18.8 % (11.5-14.5); WHITE BLOOD COUNT 6.9 X10'3 (4.5-11.0)
--- NOTE | 2023-03-15 06:30 | NUR ---
Problems reprioritized. Patient report given, questions answered & plan of care reviewed with IESHA MARTINEZ.
[2023-03-15 06:32] LABS: ALBUMIN 2.4 G/DL (3.4-5.0); ANION GAP 8 (8-16); BLOOD UREA NITROGEN 5 MG/DL (7-18); BUN/CREATININE RATIO 10.2 (10.0-20.0); CALCIUM 8.5 MG/DL (8.5-10.1); CHLORIDE 106 MMOL/L (99-107); CREATININE 0.49 MG/DL (0.40-0.90); GLUCOSE 63 MG/DL (70-104); PHOSPHORUS 3.1 MG/DL (2.3-4.5); POTASSIUM 3.4 MMOL/L (3.5-5.1); SODIUM 141 MMOL/L (135-145); eCRCL 69 ML/MIN; eGFR > 90 ML/MIN
[2023-03-15] MEDS: normal saline 1000ml 1,000 ML IV SCH ×2 (06:54→21:12)
[2023-03-15] MEDS: nicotine 21mg patch - 24 hr TD SCH (06:57)
[2023-03-15] MEDS: atorvastatin 10mg tablet PO SCH (07:34)
[2023-03-15] MEDS: ascorbic acid 500mg tablet PO SCH ×2 (07:37→16:49)
[2023-03-15] MEDS: multivitamins, therapeutics tablet PO SCH (07:38)
[2023-03-15] MEDS: metoprolol succinate 25mg (24-HOUR) SR. Tablet PO SCH (07:38)
[2023-03-15] MEDS: nicotine 14mg patch - 24hr TD SCH (07:42)
[2023-03-15] MEDS: CefTRIAXone/D5W-Rocephin 1gm 50 ML IV SCH (07:43)
[2023-03-15] MEDS: JUVEN Smoothie Arginine/Glut./Ca2+Bmb (Juven 19.3pkt) 240ml cup PO SCH ×2 (07:50→17:30)
[2023-03-15] MEDS: NUT.TX.GLUC.INTOLER,LAC-FR,SOY (GLUCERNA) 237 ML PO SCH ×3 (07:52→18:00)
[2023-03-15] MEDS: K and/or MAG REPLACEMENT MC SCH ×2 (07:52→20:00)
--- NOTE | 2023-03-15 12:30 | NUR ---
even though pt took her k replacement this morning currently is refusing to take her k again, continue to educate and to monitor
[2023-03-15] MEDS ORDERED: VANCOMYCIN LEVEL IV ONE (13:30)
[2023-03-15] MEDS ORDERED: enoxaparin 100mg/ml syringe SUBCUT ONE (14:20)
[2023-03-15] MEDS ORDERED: enoxaparin 40mg/0.4ml syringe SUBCUT ONE (14:25)
[2023-03-15] MEDS ORDERED: heparin, porcine 5000 units/ml vial SQ SCH (16:00)
[2023-03-15] MEDS: PCA WASTE DOCUMENTATION 1 MG ML MC SCH (17:48)
--- NOTE | 2023-03-15 18:33 | NUR ---
gave report to grabiel guo
[2023-03-15] MEDS: baclofen 10mg tablet PO SCH (21:04)
[2023-03-15] MEDS: magnesium hydroxide 30ml (MOM) UD suspension PO PRN (21:05)
--- NOTE | 2023-03-15 22:31 | NUR ---
Student documentation: I have reviewed interventions, assessments performed and documented by Robert KABA [facility].
[2023-03-16] VITALS (12 sets, daily range): BP systolic 112–145; BP diastolic 56–67; PULSE 71–91; RESP 14–18; TEMP 97.3–97.8; O2SAT 91–97
[2023-03-16] MEDS: ipratropium/albuterol 3ml nebule NEB SCH ×4 (02:59→21:48)
[2023-03-16] MEDS: HYDROcodone/acetaminophen 10/325mg tab PO PRN ×4 (03:41→17:43)
[2023-03-16] MEDS: gabapentin 300mg capsule PO SCH ×4 (03:41→23:34)
--- NOTE | 2023-03-16 06:26 | NUR ---
reported to days. noted pt resting w/o distress. on air bed. anticipate transfer to rehab today. taylor putting out good amounts. pt needs to be encouraged to eat.
[2023-03-16 06:29] LABS: BASOPHILS % (AUTO) 0.6 % (0-1); EOSINOPHILS # (AUTO) 0.2 X10'3 (0-0.9); EOSINOPHILS % (AUTO) 2.6 % (0-6); HEMATOCRIT 28.5 % (35.0-45.0); LYMPHOCYTES # (AUTO) 1.1 X10'3 (1.1-4.8); LYMPHOCYTES % (AUTO) 12.7 % (21-51); MEAN CORPUSCULAR HEMOGLOBIN 25.8 PG (27.0-31.0); MEAN CORPUSCULAR HGB CONC 31.7 g/dL (33.0-36.5); MEAN CORPUSCULAR VOLUME 81.5 FL (78-98); MEAN PLATELET VOLUME 7.4 FL (7.4-10.4); MONOCYTES # (AUTO) 0.7 X10'3 (0-0.9); MONOCYTES % (AUTO) 8.2 % (2-12); NEUTROPHILS # (AUTO) 6.3 X10'3 (1.8-7.7); NEUTROPHILS % (AUTO) 75.9 % (42-75); PLATELET COUNT 330 X10'3 (140-440); RED CELL DISTRIBUTION WIDTH 18.8 % (11.5-14.5); WHITE BLOOD COUNT 8.3 X10'3 (4.5-11.0)
--- NOTE | 2023-03-16 06:30 | NUR ---
Patient in room ORTHO 4007. I have received report from Bren and had the opportunity to ask questions and assume patient care.
[2023-03-16 06:44] LABS: ALBUMIN 2.4 G/DL (3.4-5.0); ANION GAP 10 (8-16); BLOOD UREA NITROGEN 5 MG/DL (7-18); BUN/CREATININE RATIO 8.6 (10.0-20.0); CALCIUM 8.6 MG/DL (8.5-10.1); CHLORIDE 103 MMOL/L (99-107); CREATININE 0.58 MG/DL (0.40-0.90); GLUCOSE 59 MG/DL (70-104); MAGNESIUM 2.1 MG/DL (1.5-2.4); POTASSIUM 3.4 MMOL/L (3.5-5.1); SODIUM 140 MMOL/L (135-145); TOTAL CARBON DIOXIDE 26.7 MMOL/L (24-32); eCRCL 58 ML/MIN; eGFR > 90 ML/MIN
[2023-03-16] MEDS: K and/or MAG REPLACEMENT MC SCH ×2 (08:00→19:59)
[2023-03-16] MEDS: ascorbic acid 500mg tablet PO SCH ×2 (08:05→16:40)
[2023-03-16] MEDS: atorvastatin 10mg tablet PO SCH (08:05)
[2023-03-16] MEDS: multivitamins, therapeutics tablet PO SCH (08:05)
[2023-03-16] MEDS: metoprolol succinate 25mg (24-HOUR) SR. Tablet PO SCH (08:06)
[2023-03-16] MEDS: enoxaparin 40mg/0.4ml syringe SUBCUT SCH (08:07)
[2023-03-16] MEDS: nicotine 21mg patch - 24 hr TD SCH (08:08)
[2023-03-16] MEDS: NUT.TX.GLUC.INTOLER,LAC-FR,SOY (GLUCERNA) 237 ML PO SCH ×3 (08:08→14:04)
[2023-03-16] MEDS: nicotine 14mg patch - 24hr TD SCH (08:11)
[2023-03-16] MEDS: JUVEN Smoothie Arginine/Glut./Ca2+Bmb (Juven 19.3pkt) 240ml cup PO SCH ×2 (08:11→17:38)
[2023-03-16] MEDS: normal saline 1000ml 1,000 ML IV SCH ×2 (09:21→22:41)
[2023-03-16] MEDS: HYDROmorphone 1 mg/ml syringe IV PRN ×3 (09:53→21:12)
--- NOTE | 2023-03-16 13:27 | NUR ---
CONTACT ISOLATION- patient is to remain in contact isolation per infectious disease MD Chapman. Pt has MDRO in groin wound per recent [facility] culture results.
[2023-03-16] MEDS: PCA WASTE DOCUMENTATION 1 MG ML MC SCH (17:48)
--- NOTE | 2023-03-16 18:00 | NUR ---
Patient in room ORTHO 4007. I have received report from IESHA Amaya and had the opportunity to ask questions and assume patient care.
--- NOTE | 2023-03-16 19:01 | NUR ---
Problems reprioritized. Patient report given, questions answered & plan of care reviewed with Nancy.
[2023-03-16] MEDS: baclofen 10mg tablet PO SCH (21:11)
[2023-03-17 00:05] VITALS: BP 108/60; PULSE 89; RESP 16; TEMP 98; O2SAT 90
[2023-03-17] MEDS: HYDROcodone/acetaminophen 10/325mg tab PO PRN ×3 (02:49→14:17)
[2023-03-17] MEDS: ipratropium/albuterol 3ml nebule NEB SCH (03:00)
--- NOTE | 2023-03-17 03:49 | NUR ---
DRESSING TO STUMP CHANGED D/T OLD DRESSING FELL OFF.
[2023-03-17] MEDS: HYDROmorphone 1 mg/ml syringe IV PRN ×2 (03:52→10:25)
--- NOTE | 2023-03-17 06:12 | NUR ---
Problems reprioritized. Patient report given, questions answered & plan of care reviewed with IESHA Amaya.
[2023-03-17 06:30] VITALS: BP 110/62; PULSE 84; RESP 14; TEMP 97.4; O2SAT 96
[2023-03-17 06:33] LABS: BASOPHILS % (AUTO) 0.3 % (0-1); EOSINOPHILS # (AUTO) 0.2 X10'3 (0-0.9); EOSINOPHILS % (AUTO) 2.1 % (0-6); HEMATOCRIT 30.3 % (35.0-45.0); HEMOGLOBIN 9.4 g/dl (12.0-16.0); LYMPHOCYTES # (AUTO) 1.2 X10'3 (1.1-4.8); LYMPHOCYTES % (AUTO) 13.2 % (21-51); MEAN CORPUSCULAR HEMOGLOBIN 25.8 PG (27.0-31.0); MEAN PLATELET VOLUME 7.4 FL (7.4-10.4); MONOCYTES # (AUTO) 0.8 X10'3 (0-0.9); MONOCYTES % (AUTO) 8.6 % (2-12); NEUTROPHILS # (AUTO) 6.7 X10'3 (1.8-7.7); NEUTROPHILS % (AUTO) 75.8 % (42-75); PLATELET COUNT 359 X10'3 (140-440); RED BLOOD COUNT 3.64 X10'6 (4.20-5.60); RED CELL DISTRIBUTION WIDTH 18.8 % (11.5-14.5); WHITE BLOOD COUNT 8.8 X10'3 (4.5-11.0)
--- NOTE | 2023-03-17 06:41 | NUR ---
5Patient in room ORTHO 4007. I have received report from Nancy and had the opportunity to ask questions and assume patient care.
[2023-03-17 06:56] LABS: ALBUMIN 2.2 G/DL (3.4-5.0); ANION GAP 8 (8-16); BLOOD UREA NITROGEN 5 MG/DL (7-18); BUN/CREATININE RATIO 8.9 (10.0-20.0); CALCIUM 8.6 MG/DL (8.5-10.1); CHLORIDE 104 MMOL/L (99-107); CREATININE 0.56 MG/DL (0.40-0.90); GLUCOSE 76 MG/DL (70-104); MAGNESIUM 2.1 MG/DL (1.5-2.4); PHOSPHORUS 3.2 MG/DL (2.3-4.5); POTASSIUM 3.4 MMOL/L (3.5-5.1); SODIUM 141 MMOL/L (135-145); TOTAL CARBON DIOXIDE 28.8 MMOL/L (24-32); eCRCL 60 ML/MIN; eGFR > 90 ML/MIN
[2023-03-17 08:00] VITALS: RESP 14; O2SAT 97
[2023-03-17] MEDS: K and/or MAG REPLACEMENT MC SCH (08:00)
[2023-03-17 08:01] LABS: PLATELET ESTIMATE NORMAL
[2023-03-17 08:02] LABS: ANISOCYTOSIS 2+; ELLIPTOCYTES 1+; STOMATOCYTES 1+
[2023-03-17] MEDS: gabapentin 300mg capsule PO SCH (08:25)
[2023-03-17] MEDS: atorvastatin 10mg tablet PO SCH (08:25)
[2023-03-17] MEDS: multivitamins, therapeutics tablet PO SCH (08:25)
[2023-03-17] MEDS: nicotine 14mg patch - 24hr TD SCH (08:25)
[2023-03-17] MEDS: metoprolol succinate 25mg (24-HOUR) SR. Tablet PO SCH (08:25)
[2023-03-17] MEDS: ascorbic acid 500mg tablet PO SCH (08:25)
[2023-03-17] MEDS: nicotine 21mg patch - 24 hr TD SCH (08:26)
[2023-03-17] MEDS: enoxaparin 40mg/0.4ml syringe SUBCUT SCH (08:26)
[2023-03-17] MEDS: NUT.TX.GLUC.INTOLER,LAC-FR,SOY (GLUCERNA) 237 ML PO SCH ×2 (08:29→13:00)
[2023-03-17] MEDS: JUVEN Smoothie Arginine/Glut./Ca2+Bmb (Juven 19.3pkt) 240ml cup PO SCH (08:29)
[2023-03-17 10:00] VITALS: BP 122/68; PULSE 77; RESP 16; TEMP 98.5; O2SAT 94
[2023-03-17] MEDS ORDERED: ENOX40DI11 SUBCUT (11:51)
[2023-03-17 14:17] VITALS: RESP 17
--- NOTE | 2023-03-17 15:10 | NUR ---
Pt transferred to [facility] post acute. Report called and given to Nurse Newton. Pt left with all belongings and in stable condition.
== END 2023-03-17 13:30 | DRG 853 ==
LOC: ER 08:17 → ED HOLD 11:25 → ORTHO 4S 16:24
PROVIDERS: ADMIT Family Medicine; ATTEND Family Medicine
PROC: 0Y6G0ZZ Detachment at Left Knee Region, Open Approach (ICD-10-PCS; principal; 2023-03-09 13:22)
DX: A41.9 Sepsis, unspecified organism (principal); E43 Unspecified severe protein-calorie malnutrition; D62 Acute posthemorrhagic anemia; I13.0 Hypertensive heart and chronic kidney disease with heart failure and stage 1 through stage 4 chronic kidney disease, or unspecified chronic kidney disease; L03.116 Cellulitis of left lower limb; E87.1 Hypo-osmolality and hyponatremia; E11.42 Type 2 diabetes mellitus with diabetic polyneuropathy; I99.8 Other disorder of circulatory system; E78.00 Pure hypercholesterolemia, unspecified; G89.29 Other chronic pain; Z96.651 Presence of right artificial knee joint; Z96.642 Presence of left artificial hip joint; E87.6 Hypokalemia; I50.9 Heart failure, unspecified; N18.9 Chronic kidney disease, unspecified; Z88.0 Allergy status to penicillin; Z88.5 Allergy status to narcotic agent; Z88.6 Allergy status to analgesic agent; Z68.24 Body mass index [BMI] 24.0-24.9, adult; I73.89 Other specified peripheral vascular diseases
CPT/HCPCS: 36415; 71045; 73502; 80048; 80053; 80202; 82948; 83605; 83735; 84100; 84145; 85008; 85025; 85610; 85730; 87040; 87081; 88307; 93005; 94640; 94760; 96374; 97110; 97161; 97530; 99284; 99285; A4314; A4615; A4618; A5200; A6212; A6213; A6222; A6223; A6258; A6266; A6446; A6449; A7000; G0378; J0696; J0744; J1170; J1650; J2250; J2270; J2405; J2704; J2916; J3010; J3370; J3480; J3490; J7030; J7040; J7120; P9047

== ENCOUNTER 2023-04-20 15:10 | Inpatient (IN) | payer MEDICARE ==
[~2023-04-20] VITALS: Ht 154.9 cm; Wt 42.0 kg
[~2023-04-20 15:10] MED LIST changes: +ENOX40DI11 SUBCUT
[2023-04-20] MEDS ORDERED: levoFLOXACIN-Levaquin 750MG/D5 150 ML IV ONE (20:05)
[2023-04-20 21:01] LABS: BASOPHILS % (AUTO) 0.6 % (0-1); EOSINOPHILS # (AUTO) 0.2 X10'3 (0-0.9); EOSINOPHILS % (AUTO) 2.5 % (0-6); HEMATOCRIT 41.6 % (35.0-45.0); HEMOGLOBIN 13.2 g/dl (12.0-16.0); LYMPHOCYTES # (AUTO) 1.4 X10'3 (1.1-4.8); LYMPHOCYTES % (AUTO) 19.4 % (21-51); MEAN CORPUSCULAR HEMOGLOBIN 28.1 PG (27.0-31.0); MEAN CORPUSCULAR HGB CONC 31.6 g/dL (33.0-36.5); MEAN CORPUSCULAR VOLUME 88.9 FL (78-98); MEAN PLATELET VOLUME 7.9 FL (7.4-10.4); MONOCYTES # (AUTO) 0.6 X10'3 (0-0.9); MONOCYTES % (AUTO) 8.3 % (2-12); NEUTROPHILS % (AUTO) 69.2 % (42-75); PLATELET COUNT 248 X10'3 (140-440); RED BLOOD COUNT 4.68 X10'6 (4.20-5.60); RED CELL DISTRIBUTION WIDTH 24.2 % (11.5-14.5); WHITE BLOOD COUNT 7.2 X10'3 (4.5-11.0)
[2023-04-20 21:03] LABS: ALANINE AMINOTRANSFERASE 12 U/L (12-78); ALBUMIN/GLOBULIN RATIO 0.5 (1.1-1.5); ALKALINE PHOSPHATASE 78 IU/L (46-116); ANION GAP 3 (8-16); ASPARTATE AMINO TRANSFERASE 18 U/L (10-37); BILIRUBIN,TOTAL 0.4 MG/DL (0.1-1.0); BLOOD UREA NITROGEN 16 MG/DL (7-18); BUN/CREATININE RATIO 36.4 (10.0-20.0); CALCIUM 8.4 MG/DL (8.5-10.1); CHLORIDE 104 MMOL/L (99-107); CREATININE 0.44 MG/DL (0.40-0.90); GLUCOSE 73 MG/DL (70-104); SODIUM 141 MMOL/L (135-145); TOTAL CARBON DIOXIDE 34.5 MMOL/L (24-32); TOTAL PROTEIN 6.1 G/DL (6.4-8.2); eCRCL 68 ML/MIN; eGFR > 90 ML/MIN
[2023-04-20 21:05] LABS: POTASSIUM 2.9 MMOL/L (3.5-5.1)
[2023-04-20 21:25] LABS: ANISOCYTOSIS 3+; PLATELET ESTIMATE NORMAL
[2023-04-20 21:35] LABS: HYPOCHROMASIA 1+; POIKILOCYTOSIS 1+
[2023-04-20 21:36] LABS: ELLIPTOCYTES 1+; STOMATOCYTES 1+
[2023-04-20 21:37] LABS: LARGE PLATELETS FEW
[2023-04-20] MEDS ORDERED: ringers solution, lacted 1,000 ML IV ONE (22:25)
[2023-04-20] MEDS: ringers solution, lacted 1,000 ML IV SCH (23:31)
[2023-04-21] MEDS ORDERED: bisacodyl 10mg suppository rectal RC PRN (04:10)
[2023-04-21] MEDS ORDERED: diphenhydrAMINE 50 mg/ml inj IV PRN (04:10)
[2023-04-21] MEDS ORDERED: diphenhydrAMINE 25mg capsule PO PRN (04:10)
[2023-04-21] MEDS ORDERED: acetaminophen 650mg rectal suppository RC PRN (04:10)
[2023-04-21] MEDS ORDERED: mag hydrox/Alum hydrox/simeth 30ml oral suspension PO PRN (04:10)
[2023-04-21] MEDS ORDERED: potassium Cl 20 mEq SR tablet PO PRN ×2 (04:10)
[2023-04-21] MEDS ORDERED: acetaminophen 325mg tablet PO PRN (04:10)
[2023-04-21] MEDS ORDERED: potassium Cl 40MEQ/1/2NS 520ml 520 ML IV PRN (04:10)
[2023-04-21] MEDS ORDERED: potassium cl 20mEq in 1/2 NS 1,000 ML IV SCH (04:10)
[2023-04-21] MEDS ORDERED: magnesium hydroxide 30ml (MOM) UD suspension PO PRN (04:10)
[2023-04-21] MEDS ORDERED: ondansetron 4mg rapidly disintigrating tab PO PRN (04:10)
[2023-04-21] MEDS ORDERED: POTASSIUM BICARB 20meq eff tab 20 MEQ TABLET.EFF PO PRN ×2 (04:58→04:59)
[2023-04-21] MEDS: potassium cl 20mEq in 1/2 NS 1,000 ML IV SCH ×3 (05:06→23:58)
[2023-04-21] MEDS: docusate sod 100mg capsule PO SCH ×2 (07:09→20:00)
[2023-04-21] MEDS: pantoprazole 40MG/NS 100ML BAG 100 ML IV SCH (07:10)
[2023-04-21] MEDS: ondansetron/PF 4mg/2ml inj IV PRN (07:10)
[2023-04-21] MEDS: levoFLOXACIN-Levaquin 500mg/D5 100 ML IV SCH (07:31)
[2023-04-21] MEDS: ringers solution, lacted 1,000 ML IV SCH ×2 (07:37→17:01)
[2023-04-21 08:06] LABS: BILIRUBIN,URINE NEGATIVE (Neg); CLARITY,URINE CLOUDY (Clear); COLOR,URINE STRAW (Yellow); GLUCOSE, URINE NEGATIVE (Neg); KETONES,URINE NEGATIVE (Neg); LEUKOCYTE ESTERASE ,URINE LARGE (Neg); NITRITES, URINE NEGATIVE (Neg); OCCULT BLOOD,URINE SMALL (Neg); PH,URINE 8.5 (4.8-8.0); PROTEIN,URINE NEGATIVE (Neg); UROBILINOGEN,URINE 0.2 E.U/dL (0.2-1.0)
[2023-04-21 08:08] LABS: UA COLLECTION TYPE FOLEY CATH
[2023-04-21 08:13] LABS: BACTERIA,URINE 1+ /HPF (Neg); MUCUS STRANDS NONE SEEN /LPF (Neg); SQUAMOUS EPITHELIAL CELL,UR NONE SEEN /LPF (FEW); TRANSITIONAL EPI CELLS,URINE MODERATE /HPF; WBC,URINE TNTC /HPF (0-4)
[2023-04-21 08:14] LABS: HYALINE CASTS 0-3 /LPF (NEGATIVE); TRIPLE PHOSPHATE CRYST 1+ /HPF (NEGATIVE); WBC CLUMPS,URINE MODERATE /HPF (NEGATIVE); YEAST FEW /HPF (NEGATIVE)
[2023-04-21 08:36] LABS: MAGNESIUM 1.7 MG/DL (1.5-2.4)
[2023-04-21 09:18] LABS: APTT 21 SECONDS (22-32); INR 1.1 INR; PROTHROMBIN TIME 11.4 SECONDS (9.0-12.0)
[2023-04-21 09:59] LABS: HEMOGLOBIN A1C 4.7 % (4.5-6.2)
[2023-04-21] MEDS: morphine 4 MG/ML inj SYRINge IV PRN ×2 (10:19→14:49)
[2023-04-21] MEDS: HYDROcodone/acetaminophen 5mg/325mg tablet PO PRN ×2 (18:02→23:54)
[2023-04-21 19:30] VITALS: BP 122/76; PULSE 94; RESP 16; TEMP 98.1; O2SAT 95
[2023-04-21 20:00] VITALS: RESP 14; O2SAT 95
[2023-04-21] MEDS: acetaminophen 325mg tablet PO PRN (21:08)
[2023-04-21 22:00] VITALS: BP 144/76; PULSE 77; RESP 14; TEMP 98.2; O2SAT 95
[2023-04-21] MEDS: temazepam 15mg capsule PO PRN (22:03)
[2023-04-22] MEDS: temazepam 15mg capsule PO PRN ×2 (00:04→21:54)
[2023-04-22] MEDS: ringers solution, lacted 1,000 ML IV SCH ×2 (04:25→14:25)
[2023-04-22] MEDS: acetaminophen 325mg tablet PO PRN (04:39)
[2023-04-22 05:52] LABS: BASOPHILS % (AUTO) 0.4 % (0-1); EOSINOPHILS # (AUTO) 0.1 X10'3 (0-0.9); EOSINOPHILS % (AUTO) 1.7 % (0-6); HEMATOCRIT 39.2 % (35.0-45.0); HEMOGLOBIN 12.6 g/dl (12.0-16.0); LYMPHOCYTES # (AUTO) 1.2 X10'3 (1.1-4.8); LYMPHOCYTES % (AUTO) 13.7 % (21-51); MEAN CORPUSCULAR HEMOGLOBIN 29.2 PG (27.0-31.0); MEAN CORPUSCULAR HGB CONC 32.2 g/dL (33.0-36.5); MEAN CORPUSCULAR VOLUME 90.5 FL (78-98); MEAN PLATELET VOLUME 8.3 FL (7.4-10.4); MONOCYTES # (AUTO) 0.9 X10'3 (0-0.9); MONOCYTES % (AUTO) 9.9 % (2-12); NEUTROPHILS # (AUTO) 6.7 X10'3 (1.8-7.7); NEUTROPHILS % (AUTO) 74.3 % (42-75); PLATELET COUNT 215 X10'3 (140-440); RED BLOOD COUNT 4.33 X10'6 (4.20-5.60); RED CELL DISTRIBUTION WIDTH 23.9 % (11.5-14.5)
[2023-04-22 05:56] LABS: ALANINE AMINOTRANSFERASE 10 U/L (12-78); ALBUMIN 1.9 G/DL (3.4-5.0); ALBUMIN/GLOBULIN RATIO 0.5 (1.1-1.5); ALKALINE PHOSPHATASE 84 IU/L (46-116); ANION GAP 9 (8-16); ASPARTATE AMINO TRANSFERASE 22 U/L (10-37); BILIRUBIN,TOTAL 0.4 MG/DL (0.1-1.0); BLOOD UREA NITROGEN 5 MG/DL (7-18); BUN/CREATININE RATIO 10.9 (10.0-20.0); CALCIUM 8.5 MG/DL (8.5-10.1); CHLORIDE 103 MMOL/L (99-107); CHOLESTEROL 80 MG/DL (0-200); CREATININE 0.46 MG/DL (0.40-0.90); GLUCOSE 61 MG/DL (70-104); HDL CHOLESTEROL 41 MG/DL (35-60); LDL CHOLESTEROL 26 MG/DL (50-100); POTASSIUM 4.1 MMOL/L (3.5-5.1); SODIUM 139 MMOL/L (135-145); TOTAL CARBON DIOXIDE 27.5 MMOL/L (24-32); TOTAL PROTEIN 6.1 G/DL (6.4-8.2); TRIGLYCERIDES 102 MG/DL (20-135); eCRCL 65 ML/MIN; eGFR > 90 ML/MIN
[2023-04-22 06:00] VITALS: BP 152/99; PULSE 76; RESP 18; TEMP 98.6; O2SAT 96
[2023-04-22] MEDS: HYDROcodone/acetaminophen 5mg/325mg tablet PO PRN ×4 (06:41→23:20)
[2023-04-22 07:01] LABS: ANISOCYTOSIS 3+; PLATELET ESTIMATE NORMAL; POIKILOCYTOSIS FEW; POLYCHROMASIA FEW
[2023-04-22 08:55] VITALS: RESP 18; O2SAT 96
[2023-04-22] MEDS: pantoprazole 40MG/NS 100ML BAG 100 ML IV SCH (09:18)
[2023-04-22] MEDS: docusate sod 100mg capsule PO SCH ×2 (09:25→20:00)
[2023-04-22] MEDS: levoFLOXACIN-Levaquin 500mg/D5 100 ML IV SCH (09:49)
[2023-04-22 10:00] VITALS: BP 138/79; PULSE 103; RESP 16; TEMP 98; O2SAT 96
[2023-04-22] MEDS: potassium cl 20mEq in 1/2 NS 1,000 ML IV SCH ×2 (11:33→23:01)
[2023-04-22] MEDS ORDERED: nicotine 21mg patch - 24 hr TD ONE (11:55)
[2023-04-22] MEDS: ondansetron/PF 4mg/2ml inj IV PRN (13:22)
[2023-04-22] MEDS: JUVEN Smoothie Arginine/Glut./Ca2+Bmb (Juven 19.3pkt) 240ml cup PO SCH (17:30)
[2023-04-22 18:00] VITALS: BP 148/79; PULSE 98; RESP 18; TEMP 97.3; O2SAT 95
[2023-04-22 20:00] VITALS: RESP 18; O2SAT 96
[2023-04-22 22:00] VITALS: BP 143/91; PULSE 109; RESP 20; TEMP 98.2; O2SAT 100
[2023-04-22] MEDS ORDERED: vancomycin/NS 1 GM ADD-VANTAGE 250 ML IV SCH (22:02)
[2023-04-22] MEDS: metroNIDAZOLE-Flagyl 500mg/NS 100 ML IV SCH (23:02)
[2023-04-23] VITALS (18 sets, daily range): BP systolic 120–187; BP diastolic 45–93; PULSE 92–129; RESP 12–22; TEMP 97.8–99; O2SAT 96–100
[2023-04-23] MEDS: ringers solution, lacted 1,000 ML IV SCH ×3 (00:25→20:25)
[2023-04-23 06:23] LABS: BASOPHILS % (AUTO) 0.2 % (0-1); EOSINOPHILS # (AUTO) 0.1 X10'3 (0-0.9); EOSINOPHILS % (AUTO) 0.4 % (0-6); HEMATOCRIT 39.2 % (35.0-45.0); HEMOGLOBIN 12.5 g/dl (12.0-16.0); LYMPHOCYTES # (AUTO) 0.8 X10'3 (1.1-4.8); LYMPHOCYTES % (AUTO) 7.1 % (21-51); MEAN CORPUSCULAR HEMOGLOBIN 28.4 PG (27.0-31.0); MEAN CORPUSCULAR HGB CONC 31.8 g/dL (33.0-36.5); MEAN CORPUSCULAR VOLUME 89.1 FL (78-98); MEAN PLATELET VOLUME 8.1 FL (7.4-10.4); MONOCYTES % (AUTO) 8.4 % (2-12); NEUTROPHILS # (AUTO) 9.5 X10'3 (1.8-7.7); NEUTROPHILS % (AUTO) 83.9 % (42-75); PLATELET COUNT 220 X10'3 (140-440); RED CELL DISTRIBUTION WIDTH 24.3 % (11.5-14.5); WHITE BLOOD COUNT 11.4 X10'3 (4.5-11.0)
[2023-04-23 06:28] LABS: ALANINE AMINOTRANSFERASE 9 U/L (12-78); ALBUMIN 1.9 G/DL (3.4-5.0); ALBUMIN/GLOBULIN RATIO 0.5 (1.1-1.5); ALKALINE PHOSPHATASE 88 IU/L (46-116); ANION GAP 8 (8-16); ASPARTATE AMINO TRANSFERASE 16 U/L (10-37); BILIRUBIN,TOTAL 0.5 MG/DL (0.1-1.0); BLOOD UREA NITROGEN 3 MG/DL (7-18); BUN/CREATININE RATIO 6.5 (10.0-20.0); CALCIUM 8.3 MG/DL (8.5-10.1); CHLORIDE 103 MMOL/L (99-107); CREATININE 0.46 MG/DL (0.40-0.90); GLUCOSE 69 MG/DL (70-104); POTASSIUM 4.4 MMOL/L (3.5-5.1); SODIUM 136 MMOL/L (135-145); TOTAL CARBON DIOXIDE 24.9 MMOL/L (24-32); TOTAL PROTEIN 5.9 G/DL (6.4-8.2); eCRCL 65 ML/MIN; eGFR > 90 ML/MIN
[2023-04-23] MEDS: potassium cl 20mEq in 1/2 NS 1,000 ML IV SCH ×2 (06:35→16:35)
[2023-04-23] MEDS: pantoprazole 40mg Tablet.DR PO SCH (07:30)
[2023-04-23] MEDS: JUVEN Smoothie Arginine/Glut./Ca2+Bmb (Juven 19.3pkt) 240ml cup PO SCH ×3 (07:30→18:30)
[2023-04-23] MEDS: docusate sod 100mg capsule PO SCH ×2 (08:00→20:00)
[2023-04-23] MEDS: linezolid 600mg/300ml PREMIX 300 ML IV SCH ×2 (11:30→20:49)
[2023-04-23] MEDS: nicotine 21mg patch - 24 hr TD SCH (11:48)
[2023-04-23] MEDS: levoFLOXACIN-Levaquin 500mg/D5 100 ML IV SCH (11:48)
[2023-04-23] MEDS: metroNIDAZOLE-Flagyl 500mg/NS 100 ML IV SCH ×2 (11:48→16:00)
[2023-04-23] MEDS ORDERED: fentaNYL/PF 50MCG/1 ML 2ML syringe ONE (12:29)
[2023-04-23] MEDS ORDERED: ringers solution, lacted 1,000 ML IV SCH (12:35)
[2023-04-23] MEDS ORDERED: morphine 2 MG/ML inj. syringe IV PRN ×2 (12:35→13:55)
[2023-04-23] MEDS ORDERED: labetalol 20mg/4ml (5mg/ml) syringe IV PRN ×2 (12:35→17:20)
[2023-04-23] MEDS ORDERED: proCHLORperazine 10 MG/2 ml inj IV PRN ×2 (12:35→13:55)
[2023-04-23] MEDS ORDERED: acetaminophen 1,000mg/100ml IV 100 ML IV ONE (12:35)
[2023-04-23] MEDS ORDERED: ondansetron/PF 4mg/2ml inj IV PRN ×2 (12:35→13:55)
[2023-04-23] MEDS ORDERED: hydrALAZINE 20mg/ml inj. IV PRN (12:35)
[2023-04-23] MEDS ORDERED: ketorolac tromethamine 15mg/ml inj. IV ONE (12:35)
[2023-04-23] MEDS ORDERED: meperidine/PF 25mg/ml syringe IV PRN (12:35)
[2023-04-23] MEDS ORDERED: sevoflurane 250ml liquid IH ONE (12:41)
[2023-04-23] MEDS ORDERED: midazolam 1 mg/ML 2ml injection ONE (13:38)
[2023-04-23] MEDS ORDERED: ondansetron/PF 4mg/2ml inj ONE (13:48)
[2023-04-23] MEDS ORDERED: dexamethasone sod phosphate 4mg/ml inj. ONE (13:48)
[2023-04-23] MEDS ORDERED: fentaNYL /PF 50mcg/ml 5ml ampule ONE (13:48)
[2023-04-23] MEDS ORDERED: LIDOcaine 2% (20mg/ml) 5ml vial ONE (13:48)
[2023-04-23] MEDS ORDERED: propofol inj 20 ML IV ONE (13:48)
[2023-04-23] MEDS ORDERED: rocuronium 10mg/ml inj IV ONE (13:48)
[2023-04-23] MEDS ORDERED: LIDOcaine 1% (10mg/ml) 2ml vial ONE (13:48)
[2023-04-23] MEDS ORDERED: morphine 4 MG/ML inj SYRINge IV PRN (13:55)
[2023-04-23] MEDS ORDERED: HYDROmorphone/PF 0.2 MG/ML SYRINGE IV PRN ×2 (13:55)
[2023-04-23] MEDS ORDERED: midazolam 1 mg/ML 2ml injection IV PRN (13:55)
[2023-04-23] MEDS: propofol 1000mg/100ml bottle 100 ML IV SCH ×2 (15:04→19:19)
[2023-04-23] MEDS: HYDROmorphone/PF 0.2 MG/ML SYRINGE IV PRN ×2 (16:31→20:43)
[2023-04-24] VITALS (25 sets, daily range): BP systolic 104–174; BP diastolic 45–79; PULSE 78–107; RESP 14–24; O2SAT 82–98
[2023-04-24] MEDS: metroNIDAZOLE-Flagyl 500mg/NS 100 ML IV SCH ×2 (00:09→08:42)
[2023-04-24] MEDS: HYDROmorphone/PF 0.2 MG/ML SYRINGE IV PRN ×2 (01:02→09:19)
[2023-04-24] MEDS: potassium cl 20mEq in 1/2 NS 1,000 ML IV SCH (02:35)
[2023-04-24 02:51] LABS: BASOPHILS % (AUTO) 0.1 % (0-1); EOSINOPHILS % (AUTO) 0 % (0-6); HEMATOCRIT 33.7 % (35.0-45.0); HEMOGLOBIN 10.9 g/dl (12.0-16.0); LYMPHOCYTES # (AUTO) 0.4 X10'3 (1.1-4.8); LYMPHOCYTES % (AUTO) 3.9 % (21-51); MEAN CORPUSCULAR HEMOGLOBIN 28.4 PG (27.0-31.0); MEAN CORPUSCULAR HGB CONC 32.3 g/dL (33.0-36.5); MEAN CORPUSCULAR VOLUME 88.1 FL (78-98); MEAN PLATELET VOLUME 7.8 FL (7.4-10.4); MONOCYTES # (AUTO) 0.3 X10'3 (0-0.9); MONOCYTES % (AUTO) 2.6 % (2-12); NEUTROPHILS # (AUTO) 10.7 X10'3 (1.8-7.7); NEUTROPHILS % (AUTO) 93.4 % (42-75); PLATELET COUNT 174 X10'3 (140-440); RED BLOOD COUNT 3.83 X10'6 (4.20-5.60); WHITE BLOOD COUNT 11.5 X10'3 (4.5-11.0)
[2023-04-24 03:03] LABS: ALANINE AMINOTRANSFERASE 9 U/L (12-78); ALBUMIN 1.6 G/DL (3.4-5.0); ALBUMIN/GLOBULIN RATIO 0.4 (1.1-1.5); ALKALINE PHOSPHATASE 98 IU/L (46-116); ANION GAP 7 (8-16); ASPARTATE AMINO TRANSFERASE 13 U/L (10-37); BILIRUBIN,TOTAL 0.4 MG/DL (0.1-1.0); BLOOD UREA NITROGEN 6 MG/DL (7-18); BUN/CREATININE RATIO 12.2 (10.0-20.0); CHLORIDE 101 MMOL/L (99-107); CREATININE 0.49 MG/DL (0.40-0.90); GLUCOSE 212 MG/DL (70-104); POTASSIUM 4.4 MMOL/L (3.5-5.1); SODIUM 134 MMOL/L (135-145); TOTAL CARBON DIOXIDE 26.2 MMOL/L (24-32); TOTAL PROTEIN 5.7 G/DL (6.4-8.2); TRIGLYCERIDES 49 MG/DL (20-135); eCRCL 61 ML/MIN; eGFR > 90 ML/MIN
[2023-04-24 03:25] LABS: ANISOCYTOSIS 3+; PLATELET ESTIMATE NORMAL
[2023-04-24] MEDS: ringers solution, lacted 1,000 ML IV SCH ×2 (06:25→10:30)
[2023-04-24] MEDS: JUVEN Smoothie Arginine/Glut./Ca2+Bmb (Juven 19.3pkt) 240ml cup PO SCH ×3 (07:30→17:30)
[2023-04-24] MEDS: docusate sod 100mg capsule PO SCH ×2 (08:00→20:35)
[2023-04-24] MEDS: pantoprazole 40mg Tablet.DR PO SCH (08:39)
[2023-04-24] MEDS: acetaminophen 325mg tablet PO PRN (08:40)
[2023-04-24] MEDS: nicotine 21mg patch - 24 hr TD SCH (08:41)
[2023-04-24] MEDS: linezolid 600mg/300ml PREMIX 300 ML IV SCH (08:43)
[2023-04-24] MEDS: levoFLOXACIN-Levaquin 500mg/D5 100 ML IV SCH (08:43)
[2023-04-24] MEDS ORDERED: potassium Cl 20 mEq SR tablet PO PRN (12:00)
[2023-04-24] MEDS ORDERED: magnesium 2GM in 50ml NS 50 ML IV PRN (12:00)
[2023-04-24] MEDS ORDERED: magnesium 4gm in 100ml NS 100 ML IV PRN (12:00)
[2023-04-24] MEDS: mineral oil/petrolatum ophthal oint EACHEYE SCH ×2 (14:00→20:00)
[2023-04-24] MEDS: multivitamins, therapeutics tablet PO SCH (15:13)
[2023-04-24] MEDS: atorvastatin 10mg tablet PO SCH (15:14)
[2023-04-24] MEDS: gabapentin 300mg capsule PO SCH (15:14)
[2023-04-24] MEDS: heparin, porcine 5000 units/ml vial SQ SCH (15:14)
[2023-04-24] MEDS ORDERED: ASCO-134 PO (16:41)
[2023-04-24] MEDS ORDERED: ENOX40DI8 SUBCUT (16:43)
[2023-04-24] MEDS ORDERED: BACL-11 PO (16:43)
[2023-04-24] MEDS ORDERED: ATOR10TA70 PO (16:43)
[2023-04-24] MEDS ORDERED: GABA300C PO (16:44)
[2023-04-24] MEDS ORDERED: DRON2.5C18 PO (16:45)
[2023-04-24] MEDS ORDERED: HYDR4TAB55 PO (16:46)
[2023-04-24] MEDS ORDERED: METO-539 PO (16:47)
[2023-04-24] MEDS ORDERED: MULT-227 PO (16:47)
[2023-04-24] MEDS ORDERED: CYAN-104 PO (16:49)
[2023-04-24] MEDS ORDERED: HYDR-3972 PO (16:49)
[2023-04-24] MEDS: baclofen 10mg tablet PO SCH (20:35)
[2023-04-24] MEDS: linezolid 600mg tablet PO SCH (20:35)
[2023-04-24] MEDS: temazepam 15mg capsule PO PRN (21:45)
[2023-04-24] MEDS: HYDROcodone/acetaminophen 5mg/325mg tablet PO PRN (21:46)
[2023-04-25] VITALS (23 sets, daily range): BP systolic 78–141; BP diastolic 36–73; PULSE 63–85; RESP 13–26; TEMP 97.7; O2SAT 89–97
[2023-04-25] MEDS: ringers solution, lacted 1,000 ML IV SCH ×2 (00:44→13:20)
[2023-04-25] MEDS: heparin, porcine 5000 units/ml vial SQ SCH ×4 (00:45→23:57)
[2023-04-25] MEDS: gabapentin 300mg capsule PO SCH ×4 (00:45→23:56)
[2023-04-25] MEDS: mineral oil/petrolatum ophthal oint EACHEYE SCH ×4 (02:00→19:28)
[2023-04-25 02:49] LABS: BASOPHILS % (AUTO) 0.6 % (0-1); EOSINOPHILS % (AUTO) 0.2 % (0-6); HEMATOCRIT 29.9 % (35.0-45.0); HEMOGLOBIN 9.7 g/dl (12.0-16.0); LYMPHOCYTES # (AUTO) 0.8 X10'3 (1.1-4.8); LYMPHOCYTES % (AUTO) 9.2 % (21-51); MEAN CORPUSCULAR HEMOGLOBIN 28.8 PG (27.0-31.0); MEAN CORPUSCULAR HGB CONC 32.5 g/dL (33.0-36.5); MEAN CORPUSCULAR VOLUME 88.5 FL (78-98); MEAN PLATELET VOLUME 7.4 FL (7.4-10.4); MONOCYTES # (AUTO) 0.7 X10'3 (0-0.9); MONOCYTES % (AUTO) 7.4 % (2-12); NEUTROPHILS # (AUTO) 7.3 X10'3 (1.8-7.7); NEUTROPHILS % (AUTO) 82.6 % (42-75); PLATELET COUNT 165 X10'3 (140-440); RED BLOOD COUNT 3.38 X10'6 (4.20-5.60); RED CELL DISTRIBUTION WIDTH 24.3 % (11.5-14.5); WHITE BLOOD COUNT 8.9 X10'3 (4.5-11.0)
[2023-04-25 02:59] LABS: ALANINE AMINOTRANSFERASE 8 U/L (12-78); ALBUMIN 1.5 G/DL (3.4-5.0); ALBUMIN/GLOBULIN RATIO 0.5 (1.1-1.5); ALKALINE PHOSPHATASE 62 IU/L (46-116); ANION GAP 4 (8-16); ASPARTATE AMINO TRANSFERASE 11 U/L (10-37); BILIRUBIN,TOTAL 0.3 MG/DL (0.1-1.0); BLOOD UREA NITROGEN 5 MG/DL (7-18); BUN/CREATININE RATIO 9.4 (10.0-20.0); CALCIUM 8.5 MG/DL (8.5-10.1); CHLORIDE 106 MMOL/L (99-107); CREATININE 0.53 MG/DL (0.40-0.90); GLUCOSE 74 MG/DL (70-104); POTASSIUM 3.5 MMOL/L (3.5-5.1); SODIUM 138 MMOL/L (135-145); TOTAL CARBON DIOXIDE 27.6 MMOL/L (24-32); TOTAL PROTEIN 4.7 G/DL (6.4-8.2); eCRCL 56 ML/MIN; eGFR > 90 ML/MIN
[2023-04-25] MEDS: JUVEN Smoothie Arginine/Glut./Ca2+Bmb (Juven 19.3pkt) 240ml cup PO SCH ×3 (07:30→18:17)
[2023-04-25] MEDS: atorvastatin 10mg tablet PO SCH (07:33)
[2023-04-25] MEDS: multivitamins, therapeutics tablet PO SCH (07:33)
[2023-04-25] MEDS: nicotine 21mg patch - 24 hr TD SCH (07:34)
[2023-04-25] MEDS: linezolid 600mg tablet PO SCH ×2 (07:34→19:19)
[2023-04-25] MEDS: pantoprazole 40mg Tablet.DR PO SCH (07:34)
[2023-04-25] MEDS: HYDROcodone/acetaminophen 5mg/325mg tablet PO PRN ×3 (07:36→19:18)
[2023-04-25] MEDS: docusate sod 100mg capsule PO SCH ×2 (08:00→19:18)
[2023-04-25] MEDS: K and/or MAG REPLACEMENT MC SCH (08:00)
[2023-04-25] MEDS ORDERED: metoprolol succinate 25mg (24-HOUR) SR. Tablet PO SCH (08:00)
[2023-04-25] MEDS: temazepam 15mg capsule PO PRN (19:18)
[2023-04-25] MEDS: baclofen 10mg tablet PO SCH (19:19)
[2023-04-25] MEDS ORDERED: VANCOMYCIN LEVEL IV ONE (19:30)
[2023-04-26] VITALS (7 sets, daily range): BP systolic 94–129; BP diastolic 42–69; PULSE 63–83; RESP 10–16; TEMP 97.5–98.3; O2SAT 94–97
[2023-04-26] MEDS: mineral oil/petrolatum ophthal oint EACHEYE SCH ×4 (02:00→20:58)
[2023-04-26] MEDS: HYDROcodone/acetaminophen 5mg/325mg tablet PO PRN ×3 (05:30→20:58)
[2023-04-26] MEDS: ringers solution, lacted 1,000 ML IV SCH ×2 (05:31→16:45)
[2023-04-26] MEDS: JUVEN Smoothie Arginine/Glut./Ca2+Bmb (Juven 19.3pkt) 240ml cup PO SCH ×2 (07:30→17:35)
[2023-04-26 07:55] LABS: EOSINOPHILS # (AUTO) 0.1 X10'3 (0-0.9); EOSINOPHILS % (AUTO) 2.3 % (0-6); HEMOGLOBIN 10.2 g/dl (12.0-16.0); MEAN PLATELET VOLUME 7.8 FL (7.4-10.4); RED CELL DISTRIBUTION WIDTH 24.1 % (11.5-14.5); WHITE BLOOD COUNT 5.5 X10'3 (4.5-11.0)
[2023-04-26 07:59] LABS: BASOPHILS % (AUTO) 0.4 % (0-1); HEMATOCRIT 31.8 % (35.0-45.0); LYMPHOCYTES # (AUTO) 1.1 X10'3 (1.1-4.8); LYMPHOCYTES % (AUTO) 19.8 % (21-51); MEAN CORPUSCULAR HGB CONC 32.1 g/dL (33.0-36.5); MEAN CORPUSCULAR VOLUME 90.4 FL (78-98); MONOCYTES # (AUTO) 0.4 X10'3 (0-0.9); MONOCYTES % (AUTO) 7.6 % (2-12); NEUTROPHILS # (AUTO) 3.9 X10'3 (1.8-7.7); NEUTROPHILS % (AUTO) 69.9 % (42-75); PLATELET COUNT 154 X10'3 (140-440); RED BLOOD COUNT 3.52 X10'6 (4.20-5.60)
[2023-04-26] MEDS: metoprolol tartrate 12.5mg (1/2 tablet) PO SCH (08:00)
[2023-04-26] MEDS: K and/or MAG REPLACEMENT MC SCH (08:00)
[2023-04-26] MEDS: ascorbic acid 500mg tablet PO SCH (08:00)
[2023-04-26] MEDS: nicotine 21mg patch - 24 hr TD SCH (08:13)
[2023-04-26] MEDS: multivitamins, therapeutics tablet PO SCH (08:13)
[2023-04-26] MEDS: linezolid 600mg tablet PO SCH (08:13)
[2023-04-26] MEDS: pantoprazole 40mg Tablet.DR PO SCH (08:14)
[2023-04-26] MEDS: gabapentin 300mg capsule PO SCH ×2 (08:14→16:35)
[2023-04-26] MEDS: atorvastatin 10mg tablet PO SCH (08:14)
[2023-04-26] MEDS: docusate sod 100mg capsule PO SCH ×2 (08:14→20:00)
[2023-04-26 08:19] LABS: ALANINE AMINOTRANSFERASE 7 U/L (12-78); ALBUMIN 1.5 G/DL (3.4-5.0); ALBUMIN/GLOBULIN RATIO 0.4 (1.1-1.5); ALKALINE PHOSPHATASE 64 IU/L (46-116); ANION GAP 6 (8-16); ASPARTATE AMINO TRANSFERASE 14 U/L (10-37); BILIRUBIN,TOTAL 0.2 MG/DL (0.1-1.0); BLOOD UREA NITROGEN 6 MG/DL (7-18); BUN/CREATININE RATIO 11.3 (10.0-20.0); CHLORIDE 107 MMOL/L (99-107); CREATININE 0.53 MG/DL (0.40-0.90); GLUCOSE 71 MG/DL (70-104); POTASSIUM 3.4 MMOL/L (3.5-5.1); SODIUM 142 MMOL/L (135-145); TOTAL CARBON DIOXIDE 29.1 MMOL/L (24-32); TOTAL PROTEIN 4.9 G/DL (6.4-8.2); eCRCL 56 ML/MIN; eGFR > 90 ML/MIN
[2023-04-26] MEDS: heparin, porcine 5000 units/ml vial SQ SCH ×2 (08:22→16:36)
[2023-04-26] MEDS: HYDROmorphone/PF 0.2 MG/ML SYRINGE IV PRN (08:30)
[2023-04-26] MEDS: potassium Cl 20 mEq SR tablet PO PRN ×3 (08:41→20:59)
[2023-04-26 08:53] LABS: CALCIUM 8.1 MG/DL (8.5-10.1)
[2023-04-26] MEDS: vancomycin/NS 1 GM ADD-VANTAGE 250 ML IV SCH (11:13)
[2023-04-26] MEDS: morphine 2 MG/ML inj. syringe IV PRN (11:19)
[2023-04-26] MEDS: baclofen 10mg tablet PO SCH (20:24)
[2023-04-27] MEDS: heparin, porcine 5000 units/ml vial SQ SCH ×3 (01:14→17:19)
[2023-04-27] MEDS: gabapentin 300mg capsule PO SCH ×3 (01:14→17:18)
[2023-04-27] MEDS: HYDROcodone/acetaminophen 5mg/325mg tablet PO PRN ×4 (01:15→19:42)
[2023-04-27] MEDS: mineral oil/petrolatum ophthal oint EACHEYE SCH ×4 (01:15→20:00)
[2023-04-27 02:00] VITALS: BP 111/63; PULSE 67; RESP 15; TEMP 97.9; O2SAT 91
[2023-04-27] MEDS: JUVEN Smoothie Arginine/Glut./Ca2+Bmb (Juven 19.3pkt) 240ml cup PO SCH ×2 (07:30→17:30)
[2023-04-27 07:34] VITALS: BP 110/58; PULSE 64; RESP 16; TEMP 97.7; O2SAT 97
[2023-04-27] MEDS: pantoprazole 40mg Tablet.DR PO SCH (07:48)
[2023-04-27] MEDS: docusate sod 100mg capsule PO SCH ×2 (07:48→20:00)
[2023-04-27] MEDS: atorvastatin 10mg tablet PO SCH (07:48)
[2023-04-27] MEDS: multivitamins, therapeutics tablet PO SCH (07:48)
[2023-04-27] MEDS: metoprolol tartrate 12.5mg (1/2 tablet) PO SCH (07:48)
[2023-04-27] MEDS: nicotine 21mg patch - 24 hr TD SCH (07:49)
[2023-04-27] MEDS: ascorbic acid 500mg tablet PO SCH (07:55)
[2023-04-27] MEDS: K and/or MAG REPLACEMENT MC SCH (08:00)
[2023-04-27 10:17] LABS: BASOPHILS % (AUTO) 0.7 % (0-1); EOSINOPHILS # (AUTO) 0.2 X10'3 (0-0.9); EOSINOPHILS % (AUTO) 3.7 % (0-6); HEMATOCRIT 32.4 % (35.0-45.0); HEMOGLOBIN 10.4 g/dl (12.0-16.0); LYMPHOCYTES # (AUTO) 1.3 X10'3 (1.1-4.8); LYMPHOCYTES % (AUTO) 19.7 % (21-51); MEAN CORPUSCULAR HEMOGLOBIN 28.6 PG (27.0-31.0); MEAN CORPUSCULAR VOLUME 89.6 FL (78-98); MEAN PLATELET VOLUME 8.2 FL (7.4-10.4); MONOCYTES # (AUTO) 0.5 X10'3 (0-0.9); MONOCYTES % (AUTO) 6.9 % (2-12); NEUTROPHILS # (AUTO) 4.7 X10'3 (1.8-7.7); PLATELET COUNT 160 X10'3 (140-440); RED BLOOD COUNT 3.62 X10'6 (4.20-5.60); RED CELL DISTRIBUTION WIDTH 24.5 % (11.5-14.5); WHITE BLOOD COUNT 6.8 X10'3 (4.5-11.0)
[2023-04-27 10:34] LABS: eGFR > 90 ML/MIN
[2023-04-27 10:59] LABS: GLUCOSE 69 MG/DL (70-104)
[2023-04-27 11:00] LABS: ALBUMIN 1.6 G/DL (3.4-5.0); ALBUMIN/GLOBULIN RATIO 0.5 (1.1-1.5); ANION GAP 5 (8-16); ASPARTATE AMINO TRANSFERASE 21 U/L (10-37); BILIRUBIN,TOTAL 0.4 MG/DL (0.1-1.0); BLOOD UREA NITROGEN 7 MG/DL (7-18); BUN/CREATININE RATIO 15.6 (10.0-20.0); CALCIUM 8.1 MG/DL (8.5-10.1); CHLORIDE 105 MMOL/L (99-107); CREATININE 0.45 MG/DL (0.40-0.90); POTASSIUM 4.3 MMOL/L (3.5-5.1); SODIUM 138 MMOL/L (135-145); TOTAL CARBON DIOXIDE 27.6 MMOL/L (24-32); eCRCL 66 ML/MIN
[2023-04-27 11:01] LABS: ALANINE AMINOTRANSFERASE 9 U/L (12-78); ALKALINE PHOSPHATASE 61 IU/L (46-116)
[2023-04-27 11:08] LABS: ANISOCYTOSIS 3+; PLATELET ESTIMATE NORMAL
[2023-04-27] MEDS: vancomycin/NS 1 GM ADD-VANTAGE 250 ML IV SCH (12:52)
[2023-04-27] MEDS: ringers solution, lacted 1,000 ML IV SCH ×2 (12:58→18:43)
[2023-04-27 15:00] VITALS: BP 93/51; PULSE 74; RESP 17; TEMP 98.1; O2SAT 96
[2023-04-27 18:00] VITALS: BP 117/62; PULSE 76; RESP 15; TEMP 98.6; O2SAT 97
[2023-04-27 20:00] VITALS: RESP 15; O2SAT 97
[2023-04-27] MEDS: baclofen 10mg tablet PO SCH (21:00)
[2023-04-27 22:00] VITALS: BP 116/56; PULSE 64; RESP 19; TEMP 97.7; O2SAT 95
[2023-04-27] MEDS: morphine 2 MG/ML inj. syringe IV PRN (22:41)
[2023-04-28] MEDS: gabapentin 300mg capsule PO SCH ×2 (00:27→08:03)
[2023-04-28] MEDS: HYDROcodone/acetaminophen 5mg/325mg tablet PO PRN ×3 (00:27→13:06)
[2023-04-28] MEDS: heparin, porcine 5000 units/ml vial SQ SCH ×2 (00:29→08:04)
[2023-04-28 02:00] VITALS: BP 115/56; PULSE 93; RESP 12; TEMP 98.4; O2SAT 96
[2023-04-28] MEDS: mineral oil/petrolatum ophthal oint EACHEYE SCH ×2 (02:17→08:04)
[2023-04-28] MEDS: ringers solution, lacted 1,000 ML IV SCH (03:01)
[2023-04-28] MEDS: morphine 2 MG/ML inj. syringe IV PRN ×2 (03:15→09:05)
[2023-04-28 07:00] VITALS: BP 139/65; PULSE 73; RESP 18; TEMP 98.4; O2SAT 93
[2023-04-28] MEDS: nicotine 21mg patch - 24 hr TD SCH (07:59)
[2023-04-28] MEDS: ascorbic acid 500mg tablet PO SCH (08:00)
[2023-04-28] MEDS: docusate sod 100mg capsule PO SCH (08:02)
[2023-04-28] MEDS: metoprolol tartrate 12.5mg (1/2 tablet) PO SCH (08:02)
[2023-04-28] MEDS: pantoprazole 40mg Tablet.DR PO SCH (08:03)
[2023-04-28] MEDS: atorvastatin 10mg tablet PO SCH (08:03)
[2023-04-28] MEDS: multivitamins, therapeutics tablet PO SCH (08:03)
[2023-04-28 08:19] LABS: BASOPHILS % (AUTO) 0.8 % (0-1); EOSINOPHILS # (AUTO) 0.3 X10'3 (0-0.9); EOSINOPHILS % (AUTO) 4.3 % (0-6); HEMATOCRIT 31.2 % (35.0-45.0); HEMOGLOBIN 10.1 g/dl (12.0-16.0); LYMPHOCYTES # (AUTO) 1.3 X10'3 (1.1-4.8); LYMPHOCYTES % (AUTO) 22.6 % (21-51); MEAN CORPUSCULAR HGB CONC 32.3 g/dL (33.0-36.5); MEAN CORPUSCULAR VOLUME 89.8 FL (78-98); MEAN PLATELET VOLUME 8.2 FL (7.4-10.4); MONOCYTES # (AUTO) 0.5 X10'3 (0-0.9); MONOCYTES % (AUTO) 7.9 % (2-12); NEUTROPHILS # (AUTO) 3.8 X10'3 (1.8-7.7); NEUTROPHILS % (AUTO) 64.4 % (42-75); PLATELET COUNT 141 X10'3 (140-440); RED BLOOD COUNT 3.47 X10'6 (4.20-5.60); RED CELL DISTRIBUTION WIDTH 23.8 % (11.5-14.5); WHITE BLOOD COUNT 5.8 X10'3 (4.5-11.0)
[2023-04-28 08:33] LABS: ALBUMIN 1.5 G/DL (3.4-5.0); ALBUMIN/GLOBULIN RATIO 0.5 (1.1-1.5); ALKALINE PHOSPHATASE 66 IU/L (46-116); ANION GAP 4 (8-16); ASPARTATE AMINO TRANSFERASE 15 U/L (10-37); BILIRUBIN,TOTAL 0.3 MG/DL (0.1-1.0); BLOOD UREA NITROGEN 7 MG/DL (7-18); BUN/CREATININE RATIO 14.3 (10.0-20.0); CHLORIDE 107 MMOL/L (99-107); CREATININE 0.49 MG/DL (0.40-0.90); GLUCOSE 65 MG/DL (70-104); POTASSIUM 3.5 MMOL/L (3.5-5.1); SODIUM 140 MMOL/L (135-145); TOTAL CARBON DIOXIDE 29.4 MMOL/L (24-32); TOTAL PROTEIN 4.8 G/DL (6.4-8.2); eCRCL 61 ML/MIN; eGFR > 90 ML/MIN
[2023-04-28 08:36] LABS: ALANINE AMINOTRANSFERASE < 6 U/L (12-78)
[2023-04-28 11:00] VITALS: BP 102/44; PULSE 54; RESP 14; TEMP 97.5; O2SAT 95
[2023-04-28] MEDS: vancomycin/NS 1 GM ADD-VANTAGE 250 ML IV SCH (12:50)
[2023-04-28 13:06] VITALS: RESP 16
[2023-04-29] MEDS ORDERED: VANCOMYCIN LEVEL IV ONE (09:30)
== END 2023-04-28 14:40 | DRG 252 ==
LOC: ER 15:11 → ED HOLD 04-21 04:14 → EDBEDREQ 04-21 18:13 → ORTHO 4S 04-21 19:20 → PACU 04-23 12:51 → CICU 2S 04-23 14:18 → PCU 3S 04-26 00:30
PROVIDERS: ADMIT Family Medicine; ATTEND Internal Medicine
PROC: 5A1935Z Respiratory Ventilation, Less than 24 Consecutive Hours (ICD-10-PCS; 2023-04-23)
PROC: 04PY0JZ Removal of Synthetic Substitute from Lower Artery, Open Approach (ICD-10-PCS; principal; 2023-04-23 12:41)
DX: T82.7XXA Infection and inflammatory reaction due to other cardiac and vascular devices, implants and grafts, initial encounter (principal); E43 Unspecified severe protein-calorie malnutrition; J96.01 Acute respiratory failure with hypoxia; Z68.1 Body mass index [BMI] 19.9 or less, adult; N39.0 Urinary tract infection, site not specified; L03.311 Cellulitis of abdominal wall; Z88.5 Allergy status to narcotic agent; Z88.0 Allergy status to penicillin; Z79.899 Other long term (current) drug therapy; E78.00 Pure hypercholesterolemia, unspecified; I10 Essential (primary) hypertension; E88.09 Other disorders of plasma-protein metabolism, not elsewhere classified; Z96.649 Presence of unspecified artificial hip joint; K43.9 Ventral hernia without obstruction or gangrene; G62.9 Polyneuropathy, unspecified; J44.9 Chronic obstructive pulmonary disease, unspecified; G89.4 Chronic pain syndrome; E87.6 Hypokalemia; E11.42 Type 2 diabetes mellitus with diabetic polyneuropathy; E11.51 Type 2 diabetes mellitus with diabetic peripheral angiopathy without gangrene; F17.200 Nicotine dependence, unspecified, uncomplicated; N28.1 Cyst of kidney, acquired; Y83.8 Other surgical procedures as the cause of abnormal reaction of the patient, or of later complication, without mention of misadventure at the time of the procedure; Y92.89 Other specified places as the place of occurrence of the external cause; Z89.612 Acquired absence of left leg above knee; Z79.891 Long term (current) use of opiate analgesic; Z88.1 Allergy status to other antibiotic agents
CPT/HCPCS: 36410; 36415; 36569; 71045; 74176; 76937; 76942; 80053; 80061; 81001; 82948; 83036; 83605; 83735; 83880; 84132; 84478; 85008; 85025; 85610; 85730; 86885; 86900; 86901; 86920; 87040; 87070; 87075; 87077; 87081; 87088; 87102; 87186; 93005; 93306; 94002; 94760; 99285; A4314; A4333; A4615; A4618; A4649; A6212; A6213; A6250; A6253; A6258; A6402; A6446; A6449; A7000; C1751; C9113; G0378; J0131; J1100; J1170; J1644; J1885; J1956; J2020; J2250; J2270; J2405; J2704; J3010; J3370; J3480; J3490; J7030; J7040; J7120